=== PATIENT | female | born 1980 | race Caucasian/White ===

== ENCOUNTER → 2016-12-19 | Outpatient (CLI) | payer OTHER ==
--- NOTE | 2016-12-19 08:18 | US ---
EXAMINATION TYPE: US venous doppler duplex LE LT DATE OF EXAM: 12/19/2016 7:29 AM COMPARISON: NONE CLINICAL HISTORY: M79.662 Pain left leg, R22.42 Swelling left leg. SIDE PERFORMED: Left TECHNIQUE: The lower extremity deep venous system is examined utilizing real time linear array sonog mariangel with graded compression, doppler sonography and color-flow sonography. VESSELS IMAGED: External Iliac Vein (EIV) Common Femoral Vein Deep Femoral Vein Greater Saphenous Vein * Femoral Vein Popliteal Vein Small Saphenous Vein * Proximal Calf Veins (* superficial vessels) Left Leg: Negative for DVT IMPRESSION: Left lower extremity negative for deep venous thrombosis.
[2016-12-19 08:26] LABS: CH 31.1; CHCM 33.4; HCT 44.4 % (34.0-46.0); HDW 2.24; HGB 14.3 gm/dL (11.4-16.0); MCH 30.2 pg (25.0-35.0); MCHC 32.3 g/dL (31.0-37.0); MCV 93.7 fL (80.0-100.0); Mean Platelet Volume 8.1; RBC 4.74 m/uL (3.80-5.40); RDW 13.3 % (11.5-15.5); WBC 11.4 k/uL (3.8-10.6)
[2016-12-19 08:31] LABS: Appearance,Urine Cloudy (Clear); Bacteria,Urine Few /hpf; Bilirubin,Urine Negative (Negative); Glucose,Urine (UA) Negative (Negative); Ketones,Urine Negative (Negative); Leukocyte Esterase,Urine Small (Negative); Mucus,Urine Rare /hpf; Nitrite,Urine Positive (Negative); PH, Urine 5.5 (5.0-8.0); Particle Count 47999; Protein,Urine Negative (Negative); Specific Gravity,Urine 1.013 (1.001-1.035); Squamous Epithelial Cell,Urine 22 /hpf (0-4); UA Billing (MACRO vs. MICRO) MICRO; Urobilinogen,Urine <2.0 mg/dL (<2.0); WBC,Urine 5 /hpf (0-5)
--- NOTE | 2016-12-19 10:16 | XR ---
EXAMINATION TYPE: XR chest 2V DATE OF EXAM: 12/19/2016 COMPARISON: NONE TECHNIQUE: PA and lateral views submitted. HISTORY: Routine checkup FINDINGS: The lungs are clear and there is no pneumothorax, pleural effusion, or focal pneumonia. Hypertrophi c change of the spine noted. Hyperinflation suggests COPD. Surgical clips in the upper abdomen noted. IMPRESSION: 1. No acute process. Correlate for COPD.
[2016-12-19 13:02] LABS: ALT 32 U/L (9-52); AST 14 U/L (14-36); Alkaline Phosphatase 52 U/L (38-126); Anion Gap 11 mmol/L; Blood Urea Nitrogen 8 mg/dL (7-17); Calcium 9.5 mg/dL (8.4-10.2); Carbon Dioxide 24 mmol/L (22-30); Chloride 108 mmol/L (98-107); Cholesterol 161 mg/dL (<200); Glucose 98 mg/dL (74-99); HDL Cholesterol 59 mg/dL (40-60); Non-African American GFR(MDRD) >60 (>60 ml/min/1.73 sqM); Potassium 4.2 mmol/L (3.5-5.1); Sodium 143 mmol/L (137-145); Total Bilirubin 0.5 mg/dL (0.2-1.3); Total Protein 7.1 g/dL (6.3-8.2)
[2016-12-19 17:35] LABS: Rheumatoid Factor, Qnt <9 IU/mL (<12)
== END | disposition home or self-care (01) ==
LOC: RADUSWWP 06:51
PROVIDERS: ATTEND Internal Medicine
DX: R22.42 Localized swelling, mass and lump, left lower limb (principal); M79.662 Pain in left lower leg; R35.0 Frequency of micturition; M19.90 Unspecified osteoarthritis, unspecified site; F17.200 Nicotine dependence, unspecified, uncomplicated; Z00.00 Encounter for general adult medical examination without abnormal findings
CPT/HCPCS: 71020; 80053; 80061; 81001; 84439; 84443; 85027; 86431

== ENCOUNTER → 2017-02-09 | Outpatient (CLI) | payer OTHER ==
--- NOTE | 2017-02-09 10:24 | XR ---
EXAMINATION TYPE: XR cervical spine comp DATE OF EXAM: 02/09/2017 COMPARISON: NONE HISTORY: Pain TECHNIQUE: Four views are submitted. FINDINGS: The odontoid is intact. There are no compression deformities. The prevertebral soft tissue structur es are within normal limits. Hypertrophic changes are seen at levels C4-T1. Facet arthropathy noted. IMPRESSION: 1. Multilevel mild hypertrophic changes. Symptoms persist consider MRI.
--- NOTE | 2017-02-09 10:29 | XR ---
EXAMINATION TYPE: XR shoulder complete LT DATE OF EXAM: 02/09/2017 COMPARISON: NONE HISTORY: Pain TECHNIQUE: Three views are submitted. FINDINGS: The osseous structures are intact. There is no acute fracture or dislocation. The AC joint is maint ained. IMPRESSION: 1. No acute process.
== END | disposition home or self-care (01) ==
LOC: RADXRMAIN 09:38
PROVIDERS: ATTEND Internal Medicine
DX: M53.82 Other specified dorsopathies, cervical region (principal); M19.90 Unspecified osteoarthritis, unspecified site
CPT/HCPCS: 72050

== ENCOUNTER → 2017-05-13 | Outpatient (CLI) | payer BC, OTHER ==
--- NOTE | 2017-05-13 14:50 | XR ---
Right elbow HISTORY: Pain for 3 months 3 views of the right elbow No comparisons Bone mineralization, joint spaces and alignment are maintained. No fracture or dislocation. No eviden t joint effusion. IMPRESSION: No acute abnormality. Elbow MRI may be of benefit.
== END | disposition home or self-care (01) ==
LOC: RADXRMAIN 10:04
PROVIDERS: ATTEND Internal Medicine
DX: M25.521 Pain in right elbow (principal)

== ENCOUNTER 2017-09-15 18:25 | Observation (INO) | payer BC, OTHER ==
[2017-09-15] MEDS ORDERED: NITROGLYCERIN OINT 1 INCH/GM PACKET TOPICAL STA (18:56)
[2017-09-15] MEDS ORDERED: MORPHINE SULFATE 2 MG/ML SYRINGE IV STA (18:56)
[2017-09-15] MEDS ORDERED: SODIUM CHLORIDE 0.9% 1,000 ML IV STA (18:56)
[2017-09-15] MEDS ORDERED: ONDANSETRON 4 MG/2 ML VIAL IVP STA (18:56)
[2017-09-15 19:22] LABS: Basophils # (A) 0.1 k/uL (0-0.2); Basophils % (A) 1 %; Eosinophils # (A) 0.2 k/uL (0-0.7); Eosinophils % (A) 2 %; HCT 42.3 % (34.0-46.0); HGB 14.2 gm/dL (11.4-16.0); Lymphocytes # (A) 2.6 k/uL (1.0-4.8); Lymphocytes % (A) 19 %; MCH 30.5 pg (25.0-35.0); MCHC 33.5 g/dL (31.0-37.0); MCV 90.8 fL (80.0-100.0); Mean Platelet Volume 7.4; Monocytes # (A) 0.9 k/uL (0-1.0); Monocytes % (A) 7 %; Neutrophils # (A) 9.8 k/uL (1.3-7.7); Neutrophils % (A) 71 %; Platelet Count 302 k/uL (150-450); RBC 4.66 m/uL (3.80-5.40); WBC 13.8 k/uL (3.8-10.6)
[2017-09-15 19:31] LABS: ALT 31 U/L (9-52); AST 21 U/L (14-36); Albumin 4.3 g/dL (3.5-5.0); Alkaline Phosphatase 61 U/L (38-126); Anion Gap 10 mmol/L; Blood Urea Nitrogen 9 mg/dL (7-17); Calcium 9.5 mg/dL (8.4-10.2); Carbon Dioxide 25 mmol/L (22-30); Chloride 104 mmol/L (98-107); Glucose 96 mg/dL (74-99); Potassium 4.4 mmol/L (3.5-5.1); Sodium 139 mmol/L (137-145); Total Bilirubin 0.6 mg/dL (0.2-1.3); Total Protein 7.2 g/dL (6.3-8.2)
[2017-09-15 19:33] LABS: D-Dimer 0.27 mg/L FEU (<0.60); INR 0.9 (<1.2); Partial Thromboplastin Time 23.4 sec (22.0-30.0); Prothrombin Time 9.4 sec (9.0-12.0)
--- NOTE | 2017-09-15 19:37 | XR ---
EXAMINATION TYPE: XR chest 2V DATE OF EXAM: 09/15/2017 COMPARISON: 12/19/2016 HISTORY: Chest pain TECHNIQUE: Frontal and lateral views of the chest are obtained. FINDINGS: Heart and mediastinum are normal. Lungs are clear. Diaphragm is normal. Bony thorax appear s normal. IMPRESSION: Normal chest. No change.
[2017-09-15 19:40] LABS: Creatine Kinase 57 U/L (30-135)
[2017-09-15 19:51] LABS: Creatine Kinase MB 0.7 ng/mL (0.0-2.4); Troponin I <0.012 ng/mL (0.000-0.034)
[2017-09-15 21:32] VITALS: TEMP 97.8
--- NOTE | 2017-09-15 23:15 | ED ---
Chest Pain HPI - General Chief Complaint: Chest Pain Stated Complaint: chest pain Time Seen by Provider: 09/15/17 18:48 Source: patient Mode of arrival: wheelchair Limitations: no limitations - History of Present Illness Initial Comments: 36 years O female tenderness chest pain started 4:30 this morning chest pain is ongoing for about 18 hours she also has some pleuritic chest pain, she has a history of tobacco use she has been smoking regularly for 23 years denies any fever no chills she does have a smoker's cough does bring up some phlegm she also had cold sweats when she had chest pain chest pain or off all day past medical history is unremarkable past surgical history significant for gallbladder disease the procedure and uterine ablation - Related Data Home Medications Medication Instructions Recorded Confirmed ALPRAZolam [Xanax] 0.25 mg PO BID PRN 09/15/17 09/15/17 Aspirin EC [Ecotrin Low Dose] 162 mg PO DAILY PRN 09/15/17 09/15/17 traMADol HCL [Ultram] 50 mg PO TID PRN 09/15/17 09/15/17 Allergies Allergy/AdvReac Type Severity Reaction Status Date / Time No Known Allergies Allergy Verified 09/15/17 19:04 Review of Systems ROS Statement: Those systems with pertinent positive or pertinent negative responses have been documented in the HPI. ROS Other: All systems not noted in ROS Statement are negative. EKG Findings - EKG Comments: EKG Findings:: KG is normal sinus ventricular rate is 87 MA interval is 140 QRS duration is 84 QT is/QTc is 374/450. This EKG does not reveal any ST elevation or ST depression Past Medical History Past Medical History: No Reported History History of Any Multi-Drug Resistant Organisms: None Reported Past Surgical History: Cholecystectomy Past Psychological History: Anxiety Smoking Status: Current every day smoker Past Alcohol Use History: None Reported Past Drug Use History: None Reported General Exam - General Exam Comments Initial Comments: General: The patient is awake and alert, in no distress, and does not appear acutely ill. Skin: Skin is warm and dry and no rashes or lesions are noted. Eye: Pupils are equal, round and reactive to light, extra-ocular movements are intact; there is normal conjunctiva bilaterally. Ears, nose, mouth and throat: There are moist mucous membranes and no oral lesions. Neck: The neck is supple, there is no tenderness or JVD. Cardiovascular: There is a regular rate and rhythm. No murmur, rub or gallop is appreciated. Respiratory: To auscultation bilateral, no wheezing no rhonchi no distress respiratory holliday noticed Gastrointestinal: Soft, non-distended, non-tender abdomen without masses or organomegaly noted. There is no rebound or guarding present. Bowel sounds are unremarkable. Back: There is no tenderness to palpation in the midline. There is no obvious deformity. Musculoskeletal: Normal ROM, no tenderness, There is no pedal edema. There is no calf tenderness or swelling. No cords were appreciated. Neurological: CN II-XII intact, Cranial nerves III through XII are intact. There are no obvious motor or sensory deficits. Coordination appears grossly intact. Speech is normal. Psychiatric: Cooperative, appropriate mood & affect, normal judgment. Limitations: no limitations Course Vital Signs 09/15/17 09/15/17 09/15/17 18:27 19:24 20:54 Temperature 98.3 F Pulse Rate 89 83 80 Respiratory 18 19 19 Rate Blood Pressure 129/84 125/80 115/80 O2 Sat by Pulse 100 95 96 Oximetry 09/15/17 09/15/17 21:30 22:40 Temperature 97.8 F Pulse Rate 76 68 Respiratory 16 18 Rate Blood Pressure 114/75 113/70 O2 Sat by Pulse 96 95 Oximetry Noticed the white count is 13.8 d-dimer is normal troponin is unremarkable compress metabolic panel EKG and chest x-ray are within normal range considering patient's risk factors she be observed for 24 hours with the cardiology consult , Patient agreed with Disposition Clinical Impression: Chest pain Disposition: ADMITTED IP TO THIS HOSP Condition: Good Referrals: Mick Coffman MD [Primary Care Provider] - 1-2 days
[2017-09-15] MEDS ORDERED: MORPHINE SULFATE 2 MG/ML SYRINGE IV PRN (23:19)
[2017-09-15] MEDS ORDERED: MORPHINE SULFATE 2 MG/ML SYRINGE IVP STA (23:21)
[2017-09-15] MEDS ORDERED: traMADol 50 MG TAB PO PRN (23:26)
[2017-09-15] MEDS ORDERED: ALPRAZolam 0.25 MG TAB PO PRN (23:26)
[2017-09-16] MEDS ORDERED: NITROGLYCERIN OINT 1 INCH/GM PACKET TOPICAL SCH
[2017-09-16 00:13] VITALS: BP 106/69; PULSE 76; RESP 16
[2017-09-16] MEDS ORDERED: ASPIRIN 325 MG TAB PO SCH (09:00)
== END 2017-09-16 00:08 | disposition left against medical advice (07) ==
LOC: EC 18:25 → 3OBS 23:19
PROVIDERS: ADMIT Internal Medicine; ATTEND Internal Medicine
DX: R07.81 Pleurodynia (principal); R61 Generalized hyperhidrosis; J41.0 Simple chronic bronchitis; F41.9 Anxiety disorder, unspecified; F17.200 Nicotine dependence, unspecified, uncomplicated; Z53.21 Procedure and treatment not carried out due to patient leaving prior to being seen by health care provider; Z90.49 Acquired absence of other specified parts of digestive tract
CPT/HCPCS: 99285; 96374 ×2; 96375 ×2; 36415; 93005; 85379; 80053; 82550; 82553; 83735; 84484; 85025; 85610; 85730; 71046; G0378; J2405; J2270

== ENCOUNTER 2018-06-14 10:48 | Emergency (ER) | payer BC, OTHER ==
[2018-06-14 10:53] VITALS: BP 117/72; PULSE 109; RESP 18; TEMP 98.2
[2018-06-14] MEDS ORDERED: methylPREDNISolone SOD SUCCI 125 MG/2 ML VIAL IM ONE (11:49)
[2018-06-14] MEDS ORDERED: CYCLOBENZAPRINE 10MG STARTER 3 TAB BTL PO STA (11:49)
[2018-06-14] MEDS ORDERED: KETOROLAC 60 MG/2 ML VIAL IM STA (11:49)
[2018-06-14] MEDS ORDERED: MORPHINE SULFATE 4 MG/ML SYRINGE IM STA (11:50)
--- NOTE | 2018-06-14 12:01 | ED ---
Back Pain HPI - General Chief Complaint: Back Pain/Injury Stated Complaint: back pain Time Seen by Provider: 06/14/18 11:22 Source: patient, RN notes reviewed, old records reviewed - History of Present Illness Initial Comments: Yasmin is a 37-year-old [employer] sensors or stiff lower back pain radiates down the right leg. Patient reports her symptoms started this morning for area. She denies any recent falls or trauma. She denies any fevers or chills urinary incontinence or bowel condoms. Patient states that she has no abdominal pain. Patient states she's had history of degenerative disc disease. Patient reports that she has had her daily tramadol. - Related Data Home Medications Medication Instructions Recorded Confirmed ALPRAZolam [Xanax] 0.25 mg PO BID PRN 09/15/17 06/14/18 traMADol HCL [Ultram] 50 mg PO TID PRN 09/15/17 06/14/18 Meloxicam [Mobic] 15 mg PO DAILY 06/14/18 06/14/18 Omeprazole [PriLOSEC] 20 mg PO BID 06/14/18 06/14/18 Previous Rx's Medication Instructions Recorded Cyclobenzaprine [Flexeril] 10 mg PO TID #20 tab 06/14/18 Dexamethasone 0.75 mg PO DAILY #12 tab 06/14/18 Ketorolac [Toradol] 10 mg PO Q6HR #15 tab 06/14/18 Allergies Allergy/AdvReac Type Severity Reaction Status Date / Time No Known Allergies Allergy Verified 06/14/18 11:27 Review of Systems ROS Statement: Those systems with pertinent positive or pertinent negative responses have been documented in the HPI. ROS Other: All systems not noted in ROS Statement are negative. Past Medical History Past Medical History: No Reported History History of Any Multi-Drug Resistant Organisms: None Reported Past Surgical History: Cholecystectomy Past Psychological History: Anxiety Smoking Status: Current every day smoker Past Alcohol Use History: None Reported Past Drug Use History: None Reported General Exam General appearance: alert, in no apparent distress Head exam: Present: atraumatic, normocephalic, normal inspection Eye exam: Present: normal appearance, PERRL, EOMI. Absent: scleral icterus, conjunctival injection, periorbital swelling ENT exam: Present: normal exam, mucous membranes moist Neck exam: Present: normal inspection. Absent: tenderness, meningismus, lymphadenopathy Respiratory exam: Present: normal lung sounds bilaterally. Absent: respiratory distress, wheezes, rales, rhonchi, stridor Cardiovascular Exam: Present: regular rate, normal rhythm, normal heart sounds. Absent: systolic murmur, diastolic murmur, rubs, gallop, clicks GI/Abdominal exam: Present: soft, normal bowel sounds. Absent: distended, tenderness, guarding, rebound, rigid Extremities exam: Present: normal inspection, full ROM, normal capillary refill. Absent: tenderness, pedal edema, joint swelling, calf tenderness Back exam: Present: normal inspection, tenderness (Denies right-sided sciatic notch tenderness. Right-sided paraspinal lumbar spine tenderness.) Neurological exam: Present: alert, oriented X3, CN II-XII intact Psychiatric exam: Present: normal affect, normal mood Skin exam: Present: warm Course Vital Signs 06/14/18 10:50 Temperature 98.2 F Pulse Rate 109 H Respiratory 18 Rate Blood Pressure 117/72 O2 Sat by Pulse 96 Oximetry Medical Decision Making - Medical Decision Making This is a 37-year-old female with acute flareup for sciatic nerve. She has a dentist does not disease history. Patient has no falls or trauma. She denies any red flag symptoms. Patient was given IM medication including Solu-Medrol Toradol Flexeril by mouth. Patient feels much better this time feels stable for discharge home. We'll discharge the Patient with a short course muscle relaxers and temperature medication. All questions were answered and return parameters were discussed. Disposition Clinical Impression: Right sided sciatica Disposition: HOME SELF-CARE Condition: Good Instructions (If sedation given, give patient instructions): Acute Low Back Pain (ED), Sciatica (ED) Additional Instructions: Patient has a close follow-up with primary care physician. Patient should return to emergency department if any alarming signs or symptoms occur. Following up with a back specialist. Apply warm compresses over the back help loosen up the muscles and tension. Prescriptions: Dexamethasone 0.75 mg PO DAILY #12 tab Cyclobenzaprine [Flexeril] 10 mg PO TID #20 tab Ketorolac [Toradol] 10 mg PO Q6HR #15 tab Is patient prescribed a controlled substance at d/c from ED?: No Referrals: Mick Coffman MD [Primary Care Provider] - 1-2 days Time of Disposition: 11:58
== END 2018-06-14 12:14 | disposition home or self-care (01) ==
LOC: EC 10:48
DX: M54.41 Lumbago with sciatica, right side (principal); F17.200 Nicotine dependence, unspecified, uncomplicated; Z79.1 Long term (current) use of non-steroidal anti-inflammatories (NSAID); Z79.899 Other long term (current) drug therapy
CPT/HCPCS: 99284; 96372 ×3; J2270; J2930; J1885

== ENCOUNTER 2019-02-03 20:23 | Emergency (ER) | payer OTHER ==
[2019-02-03 20:30] VITALS: BP 139/86; PULSE 81; RESP 18; TEMP 97.7
--- NOTE | 2019-02-03 21:00 | ED ---
Eye Problem HPI - General Chief complaint: Eye Problems Stated complaint: [place] eye Time Seen by Provider: 02/03/19 20:32 Source: patient Mode of arrival: ambulatory Limitations: no limitations - History of Present Illness Initial comments: Patient is a 38-year-old female presenting to emergency Department with complaints of right eye irritation and drainage that started this morning. Patient states she noticed her right eye feeling irritated and red throughout today. Patient has now been having yellow discharge for the last few hours. Patient states everyone in the household has had colds. Patient denies blurry vision, severe eye pain. Patient denies wearing contacts. Patient has no other complaints at this time. Upon arrival to the ER, vital signs are stable. - Related Data Home Medications Medication Instructions Recorded Confirmed ALPRAZolam [Xanax] 0.25 mg PO BID PRN 09/15/17 06/14/18 traMADol HCL [Ultram] 50 mg PO TID PRN 09/15/17 06/14/18 Meloxicam [Mobic] 15 mg PO DAILY 06/14/18 06/14/18 Omeprazole [PriLOSEC] 20 mg PO BID 06/14/18 06/14/18 Previous Rx's Medication Instructions Recorded Cyclobenzaprine [Flexeril] 10 mg PO TID #20 tab 06/14/18 Dexamethasone 0.75 mg PO DAILY #12 tab 06/14/18 Ketorolac [Toradol] 10 mg PO Q6HR #15 tab 06/14/18 Polymyxin B-Trimeth Sulf Ophth 1 drops RIGHT EYE Q4H 5 Days #1 02/03/19 [Polytrim Opthalmic] bottle Allergies Allergy/AdvReac Type Severity Reaction Status Date / Time No Known Allergies Allergy Verified 06/14/18 11:27 Review of Systems ROS Statement: Those systems with pertinent positive or pertinent negative responses have been documented in the HPI. ROS Other: All systems not noted in ROS Statement are negative. Past Medical History Past Medical History: No Reported History History of Any Multi-Drug Resistant Organisms: None Reported Past Surgical History: Cholecystectomy Past Psychological History: Anxiety Smoking Status: Current every day smoker Past Alcohol Use History: None Reported Past Drug Use History: None Reported General Exam - General Exam Comments Initial Comments: GENERAL: Well-appearing, well-nourished and in no acute distress. HEAD: Atraumatic, normocephalic. EYES: Pupils equal round and reactive to light, extraocular movements intact, sclera anicteric, right conjunctiva is injected. There is a yellow discharge in the corner the eye. ENT: Nares patent, oropharynx clear without exudates. Moist mucous membranes. NECK: Normal range of motion, supple without lymphadenopathy or JVD. LUNGS: Breath sounds clear to auscultation bilaterally and equal. No wheezes rales or rhonchi. HEART: Regular rate and rhythm without murmurs, rubs or gallops. EXTREMITIES: Normal range of motion, no pitting or edema. No clubbing or cyanosis. PSYCH: Normal mood, normal affect. SKIN: Warm, Dry, normal turgor, no rashes or lesions noted. Limitations: no limitations Course Vital Signs 02/03/19 20:26 Temperature 97.7 F Pulse Rate 81 Respiratory 18 Rate Blood Pressure 139/86 O2 Sat by Pulse 100 Oximetry Medical Decision Making - Medical Decision Making Patient is a 38-year-old female presenting with bacterial conjunctivitis of the right eye. Patient denies severe right eye pain, blurry vision. Vital signs are stable. Patient will be started on antibiotic eyedrops. Patient is stable for discharge at this time. Patient will follow up with ophthalmology if symptoms persist after 1 week. Patient is in agreement with this plan of care. Return parameters were discussed the patient she verbalized understanding. Case discussed with Dr. Medeiros. Disposition Clinical Impression: Bacterial conjunctivitis of right eye Disposition: HOME SELF-CARE Condition: Stable Instructions (If sedation given, give patient instructions): Conjunctivitis (ED) Additional Instructions: Please return to the Emergency Department if symptoms worsen or any other concerns. Use antibiotics drops as discussed. With ophthalmology if symptoms persist after one week. May also use cool compresses on the eye for relief. Prescriptions: Polymyxin B-Trimeth Sulf Ophth [Polytrim Opthalmic] 1 drops RIGHT EYE Q4H 5 Days #1 bottle Is patient prescribed a controlled substance at d/c from ED?: No Referrals: None,Stated [Primary Care Provider] - 1-2 days
== END 2019-02-03 21:17 | disposition home or self-care (01) ==
LOC: EC 20:23
DX: H10.89 Other conjunctivitis (principal); F41.9 Anxiety disorder, unspecified; F17.200 Nicotine dependence, unspecified, uncomplicated; Z79.1 Long term (current) use of non-steroidal anti-inflammatories (NSAID); Z79.899 Other long term (current) drug therapy
CPT/HCPCS: 99282

== ENCOUNTER 2019-02-07 20:56 | Emergency (ER) | payer OTHER ==
[2019-02-07] MEDS ORDERED: ALBUTEROL NEBULIZED 2.5 MG/3 ML INHALATION STA (21:23)
--- NOTE | 2019-02-07 21:25 | ED ---
URI HPI - General Chief Complaint: Upper Respiratory Infection Stated Complaint: Cough, Fever Time Seen by Provider: 02/07/19 21:11 Source: patient Mode of arrival: ambulatory Limitations: no limitations - History of Present Illness Initial Comments: This patient is a 38-year-old woman who presents to be evaluated for upper respiratory symptoms, including a cough, low-grade fevers, some sinus congestion, and mild dyspnea. Patient's son having similar symptoms for nearly the same amount of time. She has tried some [id number] remedies without much relief. MD Complaint: cough Onset/Timin -: days(s) Severity: moderate Consistency: constant Improves With: nothing Worsens With: nothing Context: sick contacts Associated Symptoms: cough, chest pain Treatments Prior to Arrival: "cold medicine" - Related Data Home Medications Medication Instructions Recorded Confirmed ALPRAZolam [Xanax] 0.25 mg PO BID PRN 09/15/17 06/14/18 traMADol HCL [Ultram] 50 mg PO TID PRN 09/15/17 06/14/18 Meloxicam [Mobic] 15 mg PO DAILY 06/14/18 06/14/18 Omeprazole [PriLOSEC] 20 mg PO BID 06/14/18 06/14/18 Previous Rx's Medication Instructions Recorded Cyclobenzaprine [Flexeril] 10 mg PO TID #20 tab 06/14/18 Dexamethasone 0.75 mg PO DAILY #12 tab 06/14/18 Ketorolac [Toradol] 10 mg PO Q6HR #15 tab 06/14/18 Polymyxin B-Trimeth Sulf Ophth 1 drops RIGHT EYE Q4H 5 Days #1 02/03/19 [Polytrim Opthalmic] bottle Albuterol Inhaler [Ventolin Hfa 1 - 2 puff INHALATION Q6HR PRN #1 02/07/19 Inhaler] inhaler predniSONE 60 mg PO DAILY #30 tab 02/07/19 Allergies Allergy/AdvReac Type Severity Reaction Status Date / Time No Known Allergies Allergy Verified 02/07/19 21:02 Review of Systems ROS Statement: Those systems with pertinent positive or pertinent negative responses have been documented in the HPI. ROS Other: All systems not noted in ROS Statement are negative. Constitutional: Reports: fever. Denies: chills, weakness ENT: Reports: congestion. Denies: throat pain Respiratory: Reports: as per HPI, cough, dyspnea. Denies: wheezes, hemoptysis Cardiovascular: Reports: as per HPI, chest pain. Denies: palpitations, edema Gastrointestinal: Denies: abdominal pain, vomiting, diarrhea Genitourinary: Denies: dysuria Musculoskeletal: Denies: back pain Skin: Denies: rash Neurological: Denies: headache Past Medical History Past Medical History: No Reported History History of Any Multi-Drug Resistant Organisms: None Reported Past Surgical History: Cholecystectomy Past Psychological History: Anxiety Smoking Status: Current every day smoker Past Alcohol Use History: None Reported Past Drug Use History: None Reported General Exam Limitations: no limitations General appearance: alert, in no apparent distress Head exam: Present: atraumatic, normocephalic Eye exam: Present: normal appearance. Absent: scleral icterus, conjunctival injection ENT exam: Present: normal oropharynx Neck exam: Present: normal inspection, full ROM. Absent: lymphadenopathy Respiratory exam: Present: wheezes. Absent: respiratory distress, rales, rhonchi, stridor Cardiovascular Exam: Present: regular rate, normal rhythm, normal heart sounds. Absent: systolic murmur, diastolic murmur, rubs, gallop GI/Abdominal exam: Present: soft. Absent: distended, tenderness, guarding, rebound, rigid, mass Neurological exam: Present: alert Skin exam: Present: warm, dry, intact, normal color. Absent: rash Course Vital Signs 02/07/19 02/07/19 02/07/19 21:01 21:12 21:44 Temperature 98.1 F Pulse Rate 88 86 Respiratory 20 18 20 Rate Blood Pressure 111/77 O2 Sat by Pulse 97 Oximetry 02/07/19 02/07/19 21:50 22:19 Temperature 97.7 F Pulse Rate 84 77 Respiratory 18 Rate Blood Pressure 123/99 O2 Sat by Pulse 99 Oximetry Disposition Clinical Impression: Acute bronchitis Disposition: HOME SELF-CARE Condition: Good Instructions (If sedation given, give patient instructions): Acute Bronchitis (ED) Prescriptions: predniSONE 60 mg PO DAILY #30 tab Albuterol Inhaler [Ventolin Hfa Inhaler] 1 - 2 puff INHALATION Q6HR PRN #1 inhaler PRN Reason: Wheezing Is patient prescribed a controlled substance at d/c from ED?: No Referrals: None,Stated [Primary Care Provider] - 1-2 days
--- NOTE | 2019-02-07 21:36 | XR ---
EXAMINATION TYPE: XR chest 2V DATE OF EXAM: 02/07/2019 COMPARISON: 09/15/2017 HISTORY: Cough and fever TECHNIQUE: Frontal and lateral views of the chest are obtained. FINDINGS: Heart and mediastinum are normal. Lungs are clear. Diaphragm is normal. Bony thorax appear s normal. IMPRESSION: Normal chest. No change.
[2019-02-07 22:20] VITALS: BP 123/99; PULSE 77; RESP 18; TEMP 97.7
== END 2019-02-07 22:19 | disposition home or self-care (01) ==
LOC: EC 20:56
DX: J20.9 Acute bronchitis, unspecified (principal); F41.9 Anxiety disorder, unspecified; F17.200 Nicotine dependence, unspecified, uncomplicated; Z79.1 Long term (current) use of non-steroidal anti-inflammatories (NSAID); Z79.899 Other long term (current) drug therapy
CPT/HCPCS: 71046; 94640; 99283

== ENCOUNTER 2019-11-18 00:35 | Emergency (ER) | payer OTHER ==
[2019-11-18] MEDS ORDERED: KETOROLAC 15 MG/ML 1 ML VIAL IM STA (01:20)
--- NOTE | 2019-11-18 01:24 | ED ---
Upper Extremity HPI - General Chief Complaint: Extremity Injury, Upper Stated Complaint: Pain In L Shoulder Time Seen by Provider: 11/18/19 01:04 Source: patient Mode of arrival: ambulatory - History of Present Illness Initial Comments: Patient is a 39-year-old female presenting to the emergency department with a chief complaint of left shoulder pain. States the symptoms began yesterday morning when it woke her up out of her sleep. Patient reports the pain is located in the left shoulder and the left, superior scapular region. Patient denies previous injuries or any current injuries to the region. Patient denies any numbness or tingling. States the pain is radiating to her left shoulder and it is exacerbated especially with abduction above 90. He denies taking any medication to alleviate the symptoms. Denies any chest pain or shortness of breath. - Related Data Home Medications Medication Instructions Recorded Confirmed ALPRAZolam [Xanax] 0.25 mg PO BID PRN 09/15/17 06/14/18 traMADol HCL [Ultram] 50 mg PO TID PRN 09/15/17 06/14/18 Meloxicam [Mobic] 15 mg PO DAILY 06/14/18 06/14/18 Omeprazole [PriLOSEC] 20 mg PO BID 06/14/18 06/14/18 Previous Rx's Medication Instructions Recorded Cyclobenzaprine [Flexeril] 10 mg PO TID #20 tab 06/14/18 Ketorolac [Toradol] 10 mg PO Q6HR #15 tab 06/14/18 dexAMETHasone [Dexamethasone] 0.75 mg PO DAILY #12 tab 06/14/18 Polymyxin B-Trimeth Sulf Ophth 1 drops RIGHT EYE Q4H 5 Days #1 02/03/19 [Polytrim Opthalmic] bottle Albuterol Inhaler (Mhu) [Ventolin 1 - 2 puff INHALATION Q6HR PRN #1 02/07/19 Hfa Inhaler (Mhu)] inhaler predniSONE 60 mg PO DAILY #30 tab 02/07/19 Allergies Allergy/AdvReac Type Severity Reaction Status Date / Time No Known Allergies Allergy Verified 11/18/19 01:02 Review of Systems ROS Statement: Those systems with pertinent positive or pertinent negative responses have been documented in the HPI. ROS Other: All systems not noted in ROS Statement are negative. Past Medical History Past Medical History: No Reported History History of Any Multi-Drug Resistant Organisms: None Reported Past Surgical History: Cholecystectomy Past Psychological History: Anxiety Smoking Status: Current every day smoker Past Alcohol Use History: None Reported Past Drug Use History: None Reported General Exam Limitations: no limitations General appearance: alert, in no apparent distress Head exam: Present: atraumatic, normocephalic, normal inspection Eye exam: Present: normal appearance, PERRL, EOMI Pupils: Present: normal accommodation ENT exam: Present: normal exam, normal oropharynx, mucous membranes moist Neck exam: Present: normal inspection, full ROM. Absent: tenderness (No cervical tenderness) Respiratory exam: Present: normal lung sounds bilaterally. Absent: respiratory distress, wheezes, rales Cardiovascular Exam: Present: regular rate, normal rhythm, normal heart sounds Extremities exam: Present: normal inspection, full ROM, tenderness (Left trapezius and anterior deltoid tenderness. Tenderness in the left superior scapular region.), normal capillary refill, other (+2 ulnar radial pulses bilaterally.) Back exam: Present: normal inspection, full ROM. Absent: tenderness, CVA tenderness (R), CVA tenderness (L), muscle spasm, paraspinal tenderness, vertebral tenderness Neurological exam: Present: alert, oriented X3 Psychiatric exam: Present: normal affect, normal mood Skin exam: Present: warm, dry, intact, normal color Course Vital Signs 11/18/19 11/18/19 01:00 02:37 Temperature 98.3 F 98.0 F Pulse Rate 94 73 Respiratory 16 18 Rate Blood Pressure 169/79 137/85 O2 Sat by Pulse 98 97 Oximetry Medical Decision Making - Medical Decision Making Patient is a 39-year-old female presenting to emergency prompt chief complaint left shoulder pain that started in the morning yesterday. There was no trauma. She woke up with the pain. On exam there is some anterior deltoid tenderness but most of it is located in the superior region of the scapula. She does have limited range of motion especially with abduction above 90. X-ray of the left shoulder reveals no acute pathologies. No direct trauma. EKG obtained shows sinus rhythm. She denies any chest pain or shortness of breath. I do suspect a possible rotator cuff injury. Ice was applied she was given Toradol and Tylenol 3 starter pack. On reevaluation patient reports her pain is improved especially from the ice compress. She was advised to follow-up with card services specialist. Strict return parameters were thoroughly discussed the patient was understanding and agreeable. Case discussed with physician. - EKG Data EKG Comments: Sinus rhythm with no ST or T-wave changes. Ventricular rate 74, NM 130, QRS 70, QTc 440. Disposition Clinical Impression: Rotator cuff injury, Left shoulder pain Disposition: HOME SELF-CARE Condition: Stable Instructions (If sedation given, give patient instructions): Rotator Cuff Injury (ED) Additional Instructions: Alternate between Tylenol and Motrin for pain control. Take prescribed medication as directed. Return to emergency department if symptoms worsen. Follow with card services specialist. Is patient prescribed a controlled substance at d/c from ED?: No Referrals: None,Stated [Primary Care Provider] - 1-2 days Time of Disposition: 02:20
--- NOTE | 2019-11-18 01:41 | XR ---
EXAMINATION TYPE: XR shoulder complete LT DATE OF EXAM: 11/18/2019 COMPARISON: 02/09/2017 HISTORY: Shoulder pain TECHNIQUE: 3 views FINDINGS: I see no fracture nor dislocation. Joint spaces are normal. There are no pathologic calcifi cations. IMPRESSION: Negative left shoulder exam. No change.
[2019-11-18] MEDS ORDERED: ACET/COD 300 MG/30 MG STARTER PACK 6 TAB BTL PO STA (01:59)
[2019-11-18 02:41] VITALS: BP 137/85; PULSE 73; RESP 18; TEMP 98
== END 2019-11-18 02:41 | disposition home or self-care (01) ==
LOC: EC 00:35
DX: M25.512 Pain in left shoulder (principal); S46.009A Unspecified injury of muscle(s) and tendon(s) of the rotator cuff of unspecified shoulder, initial encounter; F41.9 Anxiety disorder, unspecified; F17.200 Nicotine dependence, unspecified, uncomplicated; Z79.1 Long term (current) use of non-steroidal anti-inflammatories (NSAID); Z79.899 Other long term (current) drug therapy; X58.XXXA Exposure to other specified factors, initial encounter
CPT/HCPCS: 93005; 73030; 99283; 96372; J1885

== ENCOUNTER 2019-11-23 04:27 | Emergency (ER) | payer OTHER ==
[2019-11-23 04:34] VITALS: BP 145/93; PULSE 108; RESP 18; TEMP 97.8
[2019-11-23] MEDS ORDERED: MORPHINE SULFATE 4 MG/ML SYRINGE IM STA (04:45)
[2019-11-23] MEDS ORDERED: ACET/COD 300 MG/30 MG STARTER PACK 6 TAB BTL PO STA (04:45)
--- NOTE | 2019-11-23 04:49 | ED ---
Upper Extremity HPI - General Chief Complaint: Extremity Injury, Upper Stated Complaint: L shoulder pain Time Seen by Provider: 11/23/19 04:35 Source: patient Mode of arrival: ambulatory Limitations: physical limitation - History of Present Illness Initial Comments: Kristen 39-year-old female who was seen earlier in the week for a left shoulder injury. She was walking her dog on a leash and pulled her very hard. Pain progressively worsened throughout the day while she was washing reina and doing repetitive motions. Her previous workup in the ER revealed a normal x-ray she was advised she likely had a rotator cuff injury needed to follow up with orthopedics. Patient returns today for continued pain. Patient states that she was helping her shoulder would improve so she had not yet contacted orthopedics for follow-up. She has been alternating Tylenol and Motrin. She's been applying ice and trying to take warm showers to relax the muscles but has persistent discomfort in the shoulder. Patient presents early this morning stating she hasn't been able to sleep all night due to the pain in her shoulder. MD Complaint: Injury to:: left, shoulder Onset/Timin -: week(s) Other Injuries: none Place: home Improves With: cold therapy, immobilization Worsens With: movement of extremity Context: other (Arm was pulled by her leashed dog) Associated Symptoms: weakness - Related Data Home Medications Medication Instructions Recorded Confirmed ALPRAZolam [Xanax] 0.25 mg PO BID PRN 09/15/17 06/14/18 traMADol HCL [Ultram] 50 mg PO TID PRN 09/15/17 06/14/18 Meloxicam [Mobic] 15 mg PO DAILY 06/14/18 06/14/18 Omeprazole [PriLOSEC] 20 mg PO BID 06/14/18 06/14/18 Previous Rx's Medication Instructions Recorded Cyclobenzaprine [Flexeril] 10 mg PO TID #20 tab 06/14/18 Ketorolac [Toradol] 10 mg PO Q6HR #15 tab 06/14/18 dexAMETHasone [Dexamethasone] 0.75 mg PO DAILY #12 tab 06/14/18 Polymyxin B-Trimeth Sulf Ophth 1 drops RIGHT EYE Q4H 5 Days #1 02/03/19 [Polytrim Opthalmic] bottle Albuterol Inhaler (Mhu) [Ventolin 1 - 2 puff INHALATION Q6HR PRN #1 02/07/19 Hfa Inhaler (Mhu)] inhaler predniSONE 60 mg PO DAILY #30 tab 02/07/19 Allergies Allergy/AdvReac Type Severity Reaction Status Date / Time No Known Allergies Allergy Verified 11/23/19 04:34 Review of Systems ROS Statement: Those systems with pertinent positive or pertinent negative responses have been documented in the HPI. ROS Other: All systems not noted in ROS Statement are negative. Past Medical History Past Medical History: No Reported History History of Any Multi-Drug Resistant Organisms: None Reported Past Surgical History: Cholecystectomy Past Psychological History: Anxiety Smoking Status: Current every day smoker Past Alcohol Use History: None Reported Past Drug Use History: None Reported General Exam - General Exam Comments Initial Comments: Physical Exam GENERAL: Patient is well-developed and well-nourished. Patient is nontoxic and well-hydrated and is in no distress. HENT: Normocephalic, Atraumatic. EYES: PERRL, EOMI PULMONARY: Unlabored respirations. 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, no paresthesias, radial and ulnar pulses strong Refill less than 2 seconds PSYCHIATRIC: No SI/HI Limitations: physical limitation Course Vital Signs 11/23/19 04:29 Temperature 97.8 F Pulse Rate 108 H Respiratory 18 Rate Blood Pressure 145/93 O2 Sat by Pulse 99 Oximetry Medical Decision Making - Medical Decision Making The patient was seen and evaluated, history is obtained from the patient and review of medical record Patient had normal x-ray last week she has persistent aching pain in her left shoulder Patient has not yet followed up with orthopedics I do suspect she likely has a rotator cuff injury based on history and physical exam and normal x-rays Patient tearful crying hasn't been able to sleep, IM morphine was given patient was given another starter pack of Tylenol No. 3 was advised she needs [facility] today as they may not be able to see her for a few days. All questions pertaining care were answered return parameters were discussed patient was discharged home in stable condition Disposition Clinical Impression: Rotator cuff injury, Left shoulder pain Disposition: HOME SELF-CARE Condition: Stable Additional Instructions: Contact [facility] today to establish follow-up Continue to alternate Tylenol and Motrin, apply heat or ice for relief Return to the ER for any worsening or development of new or concerning symptoms Is patient prescribed a controlled substance at d/c from ED?: No Referrals: None,Stated [Primary Care Provider] - 1-2 days
== END 2019-11-23 05:05 | disposition home or self-care (01) ==
LOC: EC 04:27
DX: S46.002A Unspecified injury of muscle(s) and tendon(s) of the rotator cuff of left shoulder, initial encounter (principal); F41.9 Anxiety disorder, unspecified; F17.200 Nicotine dependence, unspecified, uncomplicated; X50.3XXA Overexertion from repetitive movements, initial encounter; Y93.K1 Activity, walking an animal
CPT/HCPCS: 99283; 96372; J2270

== ENCOUNTER → 2020-01-05 | Outpatient (CLI) | payer OTHER ==
--- NOTE | 2020-01-06 06:42 | MR ---
MRI CERVICAL SPINE: CLINICAL HISTORY: Neck pain per order. Headache with neck pain for 3 months causing pain or weakness into left arm per patient. TECHNIQUE: Multiplanar, multisequence imaging of the cervical spine is performed without with IV cont rast. COMPARISON: Cervical spine x-ray November 28, 2019. FINDINGS: Sagittal images of the cervical spine show the craniocervical junction to appear within nor mal limits. The cervical and upper thoracic spinal cord is normal in course, caliber, and signal. Mata btle grade 1 retrolisthesis C5 on C6. Mild disc space narrowing C6-C7 level otherwise the vertebral b dru and intravertebral disk heights are normal. Mild to moderate anterior spurring C5-C6 and C6-C7 l evels. Small hemangioma involving the posterior C5 vertebra. Axial images show the C2-C3, C3-C4, and C4-C5 levels all to appear within normal limits. Axial images at the C5-C6 level shows broad-based left paracentral disc protrusion effacing the anter ior thecal sac and causing asymmetric mild to minimal left-sided neural foraminal narrowing. Axial images at the C6-C7 level showed broad base left paracentral disc protrusion effacing the anter ior thecal sac and causing mild to moderate left-sided neural foraminal narrowing. Finding most promi nent axial image 16. Axial images at C7-T1 level are within normal limits. IMPRESSION: Focal mild to moderate degenerative changes C5-C6 and C6-C7 level as detailed above.
== END | disposition home or self-care (01) ==
LOC: RADMRIMAIN 11:24
PROVIDERS: ATTEND Orthopaedic Surgery
DX: M47.812 Spondylosis without myelopathy or radiculopathy, cervical region (principal); M47.813 Spondylosis without myelopathy or radiculopathy, cervicothoracic region
CPT/HCPCS: 72141

== ENCOUNTER 2020-01-28 10:13 | Emergency (ER) | payer OTHER ==
[2020-01-28 10:29] VITALS: RESP 18
[2020-01-28] MEDS ORDERED: LORazepam 1 MG TAB PO STA (10:45)
[2020-01-28] MEDS ORDERED: IBUPROFEN 600 MG TAB PO STA (10:45)
[2020-01-28] MEDS ORDERED: PROPARACAINE 0.5% OPHTH DROPS 15 ML BTL BOTH EYES STA (10:45)
[2020-01-28] MEDS ORDERED: FLUORESCEIN STRIPS 1 MG STRIP BOTH EYES ONE (10:47)
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
[2020-01-28] MEDS ORDERED: ACET/COD 300 MG/30 MG STARTER PACK 6 TAB BTL PO STA (11:38)
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
[2020-01-28 12:26] VITALS: BP 126/77; PULSE 102; TEMP 98
== END 2020-01-28 12:25 | disposition home or self-care (01) ==
LOC: EC 10:13
DX: S00.12XA Contusion of left eyelid and periocular area, initial encounter (principal); H50.9 Unspecified strabismus; F41.9 Anxiety disorder, unspecified; F17.200 Nicotine dependence, unspecified, uncomplicated; Y04.0XXA Assault by unarmed brawl or fight, initial encounter
CPT/HCPCS: 70450; 70486; 72125; 99284

== ENCOUNTER 2020-08-02 22:33 | Emergency (ER) | payer OTHER ==
[2020-08-02 22:38] VITALS: TEMP 97.6
--- NOTE | 2020-08-02 22:57 | ED ---
General Adult HPI - General Chief complaint: Upper Respiratory Infection Stated complaint: COVID+, FRANK Time Seen by Provider: 08/02/20 22:41 Source: patient Mode of arrival: ambulatory Limitations: no limitations - History of Present Illness Initial comments: 39-year-old female presents emergency Department with chief complaint of elevated shortness of breath. Patient reports symptoms over the last 2-3 days but she tested positive yesterday for Covid. She reports having "lung pain". States she has pleuritic chest pain is exacerbated when taking deep breaths. She also reports dyspnea on exertion. Reports a fever of 101 at home and has been taking [id number] antipyretics. She is a current smoker but has not smoked since her symptoms began. Denies any nausea vomiting diarrhea. Does report 2 days of dizziness where the room was spinning around her but denies any lightheadedness. Denies any headaches, one-sided weakness of paresthesias or any visual changes. - Related Data Previous Rx's Medication Instructions Recorded Ibuprofen [Motrin] 600 mg PO Q8HR PRN #20 tab 01/28/20 Allergies Allergy/AdvReac Type Severity Reaction Status Date / Time No Known Allergies Allergy Verified 08/02/20 22:38 Review of Systems ROS Statement: Those systems with pertinent positive or pertinent negative responses have been documented in the HPI. ROS Other: All systems not noted in ROS Statement are negative. Past Medical History Past Medical History: No Reported History History of Any Multi-Drug Resistant Organisms: None Reported Past Surgical History: Cholecystectomy, Tubal Ligation, Uterine Ablation Past Psychological History: Anxiety Smoking Status: Current every day smoker Past Alcohol Use History: Rare Past Drug Use History: None Reported General Exam Limitations: no limitations General appearance: alert, in no apparent distress, obese Head exam: Present: atraumatic, normocephalic, normal inspection Eye exam: Present: normal appearance, PERRL, EOMI Pupils: Present: normal accommodation ENT exam: Present: normal exam, normal oropharynx, mucous membranes moist, TM's normal bilaterally, normal external ear exam Neck exam: Present: normal inspection, full ROM. Absent: tenderness Respiratory exam: Present: normal lung sounds bilaterally. Absent: respiratory distress, wheezes, rales, rhonchi, stridor, chest wall tenderness Cardiovascular Exam: Present: regular rate, normal rhythm, normal heart sounds. Absent: systolic murmur GI/Abdominal exam: Present: soft. Absent: distended, tenderness, guarding, rebound Extremities exam: Present: normal inspection, full ROM, normal capillary refill. Absent: tenderness, pedal edema, joint swelling Back exam: Present: normal inspection, full ROM. Absent: tenderness, CVA tenderness (R), CVA tenderness (L) Neurological exam: Present: alert, oriented X3 Psychiatric exam: Present: normal affect, normal mood Skin exam: Present: warm, dry, intact, normal color Course Vital Signs 08/02/20 08/02/20 22:35 23:26 Temperature 97.6 F Pulse Rate 101 H Respiratory 22 18 Rate Blood Pressure 151/82 O2 Sat by Pulse 96 Oximetry Medical Decision Making - Medical Decision Making 39-year-old female presents to the emergency room with a chief complaint of cough and congestion. A physical examination, patient does not appear to be in any respiratory distress. Vital signs within normal limits. Lungs are clear to auscultation. EKG showing no acute ischemic changes. Chest x-ray is unremarkable. CBC shows mild leukocytosis of 11.2. Coags within normal limits. D-dimer is negative. CBC unremarkable. Covid protocol discussed with patient. Advised to take antipyretics at home. Fluids and quarantine. Return parameters were discussed with patient is upsetting agreeable. Case discussed with - Lab Data Result diagrams: 08/02/20 23:08 08/02/20 23:08 Lab Results 08/02/20 08/02/20 08/02/20 Range/Units 23:08 23:08 23:08 WBC 11.7 H (3.8-10.6) k/uL RBC 4.94 (3.80-5.40) m/uL Hgb 14.4 (11.4-16.0) gm/dL Hct 44.1 (34.0-46.0) % MCV 89.3 (80.0-100.0) fL MCH 29.2 (25.0-35.0) pg MCHC 32.7 (31.0-37.0) g/dL RDW 13.6 (11.5-15.5) % Plt Count 331 (150-450) k/uL MPV 7.9 Neutrophils % 57 % Lymphocytes % 32 % Monocytes % 5 % Eosinophils % 5 % Basophils % 1 % Neutrophils # 6.6 (1.3-7.7) k/uL Lymphocytes # 3.7 (1.0-4.8) k/uL Monocytes # 0.6 (0-1.0) k/uL Eosinophils # 0.6 (0-0.7) k/uL Basophils # 0.1 (0-0.2) k/uL PT 9.4 (9.0-12.0) sec INR 0.9 (<1.2) APTT 23.7 (22.0-30.0) sec D-Dimer 0.38 (<0.60) mg/L FEU Sodium 137 (137-145) mmol/L Potassium 4.1 (3.5-5.1) mmol/L Chloride 105 (98-107) mmol/L Carbon Dioxide 24 (22-30) mmol/L Anion Gap 8 mmol/L BUN 14 (7-17) mg/dL Creatinine 0.57 (0.52-1.04) mg/dL Est GFR (CKD-EPI)AfAm >90 (>60 ml/min/1.73 sqM) Est GFR (CKD-EPI)NonAf >90 (>60 ml/min/1.73 sqM) Glucose 121 H (74-99) mg/dL Calcium 10.4 H (8.4-10.2) mg/dL Magnesium 1.6 (1.6-2.3) mg/dL Total Bilirubin 0.3 (0.2-1.3) mg/dL AST 21 (14-36) U/L ALT 16 (4-34) U/L Alkaline Phosphatase 77 (38-126) U/L Troponin I (0.000-0.034) ng/mL Total Protein 7.2 (6.3-8.2) g/dL Albumin 4.3 (3.5-5.0) g/dL 08/02/20 Range/Units 23:08 WBC (3.8-10.6) k/uL RBC (3.80-5.40) m/uL Hgb (11.4-16.0) gm/dL Hct (34.0-46.0) % MCV (80.0-100.0) fL MCH (25.0-35.0) pg MCHC (31.0-37.0) g/dL RDW (11.5-15.5) % Plt Count (150-450) k/uL MPV Neutrophils % % Lymphocytes % % Monocytes % % Eosinophils % % Basophils % % Neutrophils # (1.3-7.7) k/uL Lymphocytes # (1.0-4.8) k/uL Monocytes # (0-1.0) k/uL Eosinophils # (0-0.7) k/uL Basophils # (0-0.2) k/uL PT (9.0-12.0) sec INR (<1.2) APTT (22.0-30.0) sec D-Dimer (<0.60) mg/L FEU Sodium (137-145) mmol/L Potassium (3.5-5.1) mmol/L Chloride (98-107) mmol/L Carbon Dioxide (22-30) mmol/L Anion Gap mmol/L BUN (7-17) mg/dL Creatinine (0.52-1.04) mg/dL Est GFR (CKD-EPI)AfAm (>60 ml/min/1.73 sqM) Est GFR (CKD-EPI)NonAf (>60 ml/min/1.73 sqM) Glucose (74-99) mg/dL Calcium (8.4-10.2) mg/dL Magnesium (1.6-2.3) mg/dL Total Bilirubin (0.2-1.3) mg/dL AST (14-36) U/L ALT (4-34) U/L Alkaline Phosphatase (38-126) U/L Troponin I <0.012 (0.000-0.034) ng/mL Total Protein (6.3-8.2) g/dL Albumin (3.5-5.0) g/dL Disposition Clinical Impression: COVID-19 Disposition: HOME SELF-CARE Condition: Stable Instructions (If sedation given, give patient instructions): Coronavirus Disease 2019 (COVID-19) Additional Instructions: Please return to the Emergency Department if symptoms worsen or any other concerns. Is patient prescribed a controlled substance at d/c from ED?: No Referrals: None,Stated [Primary Care Provider] - 1-2 days Time of Disposition: 00:17
--- NOTE | 2020-08-02 23:12 | XR ---
EXAMINATION TYPE: XR chest 1V portable DATE OF EXAM: 08/02/2020 COMPARISON: 02/07/2019 HISTORY: Chest pain TECHNIQUE: Single view FINDINGS: Heart and mediastinum are normal. Lungs are clear. Diaphragm is normal. Bony thorax is inta ct. IMPRESSION: Normal chest. No change.
[2020-08-02 23:15] LABS: Basophils # (A) 0.1 k/uL (0-0.2); Basophils % (A) 1 %; Eosinophils # (A) 0.6 k/uL (0-0.7); Eosinophils % (A) 5 %; HCT 44.1 % (34.0-46.0); HGB 14.4 gm/dL (11.4-16.0); Lymphocytes # (A) 3.7 k/uL (1.0-4.8); Lymphocytes % (A) 32 %; MCH 29.2 pg (25.0-35.0); MCHC 32.7 g/dL (31.0-37.0); MCV 89.3 fL (80.0-100.0); Mean Platelet Volume 7.9; Monocytes # (A) 0.6 k/uL (0-1.0); Monocytes % (A) 5 %; Neutrophils # (A) 6.6 k/uL (1.3-7.7); Neutrophils % (A) 57 %; Platelet Count 331 k/uL (150-450); RBC 4.94 m/uL (3.80-5.40); RDW 13.6 % (11.5-15.5); WBC 11.7 k/uL (3.8-10.6)
[2020-08-02 23:24] LABS: ALT 16 U/L (4-34); AST 21 U/L (14-36); African American GFR (CKD) >90 (>60 ml/min/1.73 sqM); Albumin 4.3 g/dL (3.5-5.0); Alkaline Phosphatase 77 U/L (38-126); Anion Gap 8 mmol/L; Blood Urea Nitrogen 14 mg/dL (7-17); Calcium 10.4 mg/dL (8.4-10.2); Carbon Dioxide 24 mmol/L (22-30); Chloride 105 mmol/L (98-107); Glucose 121 mg/dL (74-99); Magnesium 1.6 mg/dL (1.6-2.3); Non-African American GFR(CKD) >90 (>60 ml/min/1.73 sqM); Potassium 4.1 mmol/L (3.5-5.1); Sodium 137 mmol/L (137-145); Total Bilirubin 0.3 mg/dL (0.2-1.3); Total Protein 7.2 g/dL (6.3-8.2)
[2020-08-02 23:28] VITALS: RESP 18
[2020-08-02 23:32] LABS: D-Dimer 0.38 mg/L FEU (<0.60); INR 0.9 (<1.2); Partial Thromboplastin Time 23.7 sec (22.0-30.0); Prothrombin Time 9.4 sec (9.0-12.0)
[2020-08-03 00:48] VITALS: BP 150/113; PULSE 84
== END 2020-08-03 00:48 | disposition home or self-care (01) ==
LOC: EC 22:33
DX: U07.1 COVID-19 (principal); F41.9 Anxiety disorder, unspecified; F17.200 Nicotine dependence, unspecified, uncomplicated
CPT/HCPCS: 36415; 71045; 80053; 83735; 84484; 85025; 85379; 85610; 85730; 93005; 99285

== ENCOUNTER 2021-06-24 10:11 | Inpatient (IN) | payer OTHER, MEDICAID ==
--- NOTE | 2021-06-24 10:59 | ED ---
Psych HPI - General Chief Complaint: Psychiatric Symptoms Stated Complaint: EPS Eval Time Seen by Provider: 06/24/21 10:28 Source: patient, RN notes reviewed Mode of arrival: ambulatory Limitations: no limitations - History of Present Illness Initial Comments: This a 40-year-old female presents emergency Department with chief complaint of depression. Patient states she's been having worsening depression over the last several months. Patient was told that she just needed tough it out. Patient states that she was on medications in the past for depression. She states that she has had thoughts of wishing she never woke up. Patient denies any significant alcohol abuse or drug abuse at this time. Patient denies any physical complaints. Patient on no current antidepressants. - Related Data Home Medications Medication Instructions Recorded Confirmed No Known Home Medications 06/24/21 06/24/21 Allergies Allergy/AdvReac Type Severity Reaction Status Date / Time No Known Allergies Allergy Verified 06/24/21 11:24 Review of Systems ROS Statement: Those systems with pertinent positive or pertinent negative responses have been documented in the HPI. ROS Other: All systems not noted in ROS Statement are negative. Past Medical History Past Medical History: No Reported History History of Any Multi-Drug Resistant Organisms: None Reported Past Surgical History: Cholecystectomy, Tubal Ligation, Uterine Ablation Past Psychological History: Anxiety Smoking Status: Current every day smoker Past Alcohol Use History: Rare Past Drug Use History: None Reported General Exam Limitations: no limitations General appearance: alert, in no apparent distress Head exam: Present: atraumatic, normocephalic, normal inspection Eye exam: Present: normal appearance, PERRL, EOMI. Absent: scleral icterus, conjunctival injection, periorbital swelling ENT exam: Present: normal exam, normal oropharynx, mucous membranes moist Neck exam: Present: normal inspection, full ROM. Absent: tenderness, meningismus, lymphadenopathy Respiratory exam: Present: normal lung sounds bilaterally. Absent: respiratory distress, wheezes, rales, rhonchi, stridor Cardiovascular Exam: Present: regular rate, normal rhythm, normal heart sounds. Absent: systolic murmur, diastolic murmur, rubs, gallop, clicks GI/Abdominal exam: Present: soft, normal bowel sounds. Absent: distended, tenderness, guarding, rebound, rigid Neurological exam: Present: alert Psychiatric exam: Present: depressed, flat affect Skin exam: Present: warm, dry, intact, normal color. Absent: rash Course Vital Signs 06/24/21 06/24/21 06/24/21 10:25 11:01 13:00 Temperature 98.4 F Pulse Rate 111 H 93 Respiratory 20 16 Rate Blood Pressure 148/79 152/95 O2 Sat by Pulse 99 97 Oximetry Medical Decision Making - Medical Decision Making Patient was evaluated he has case discussed Dr. Mckeon recommends patient be admitted for psychiatric treatment. Disposition Clinical Impression: Depression Disposition: ADMITTED IP TO THIS HOSP Referrals: None,Stated [Primary Care Provider] - 1-2 days
[2021-06-24 13:02] VITALS: RESP 16
[2021-06-24] MEDS ORDERED: LORazepam 1 MG TAB PO STA (13:04)
[2021-06-24 13:13] LABS: Amphetamine Screen,Urine Detected (NotDetected); Barbiturate Screen,Urine Not Detected (NotDetected); Benzodiazepines Screen,Urine Detected (NotDetected); Cocaine Screen,Urine Not Detected (NotDetected); Methadone Screen, Urine Not Detected (NotDetected); Opiate Screen,Urine Detected (NotDetected); Oxycodone Screen, Urine Detected (NotDetected); Phencyclidine Screen,Urine Not Detected (NotDetected); Tricyclic Antidepressant,Urine Not Detected (NotDetected); Urn Cannabinoid Scrn Not Detected (NotDetected)
[2021-06-24] MEDS ORDERED: MAGNESIUM HYDROXIDE 2,400 MG/10 ML CUP PO PRN (15:00)
[2021-06-24] MEDS ORDERED: MAG HYDROX/AL HYDROX/SIMETH 30 ML CUP PO PRN (15:00)
[2021-06-24] MEDS ORDERED: LORazepam 1 MG TAB PO PRN (15:00)
[2021-06-24] MEDS ORDERED: ACETAMINOPHEN TAB 325 MG TAB PO PRN (15:00)
[2021-06-24] MEDS ORDERED: LORazepam 2 MG/ML INJ IM PRN (15:01)
[2021-06-24] MEDS ORDERED: traZODone HCL 50 MG TAB PO PRN (15:01)
[2021-06-24] MEDS: NICOTINE 14MG/24HR PATCH TRANSDERM SCH (16:18)
--- NOTE | 2021-06-24 16:44 | P.MDCNMH ---
History of Present Illness H&P Date: 06/24/21 Chief Complaint: Medical management 40-year-old woman with no medical history except for obesity class II presented for anxiety/depression, suicidal ideation. Medicine was consulted for medical management by the psychiatry team. Patient has no complaints at this time inclu ding the denial of fevers, chills, nausea, vomiting, chest pain, palpitations, syncopal, presyncope, cough, dyspnea, abdominal pain, constipation, diarrhea, dysuria, dyschezia, numbness/weakness of extremities. Upon my evaluation, patient is afebrile, 127/89, heart rate 82, 98% on room air. Urine tox screen is significant for opiates, oxycodone, amphetamine, methamphetamine, benzodiazepines. Covid was negative. All Systems reviewed and pertinent positives and negatives noted in HPI, all other symptoms are negative Gen: awake, alert HEENT: normocephalic, atraumatic, good hearing acuity, moist mucous membranes Resp: good air exchange, breathing comfortably with no accessory muscle use CVS: good distal perfusion x 4, GI: soft, NTTP, ND : no SPT, no CVAT, jolly catheter not present MSK: no pitting edema, no clubbing Neuro: non-focal, moving all extremities Psych: cooperative, euthymic mood Labs are reviewed as above, no imaging to review. Assessment/plan: Obesity, class II -Recommend outpatient weight loss referral -Patient should have PCP screen patient for diabetes, hyperlipidemia Polysubstance abuse Depression -Management per mental health team Patient is a full code Thank you for this consult. Lumbar vertebral is available 20/10 should any questions or concerns arise please reach out via perfect serve Past Medical History Past Medical History: No Reported History History of Any Multi-Drug Resistant Organisms: None Reported Past Surgical History: Cholecystectomy, Tubal Ligation, Uterine Ablation Past Psychological History: Anxiety Smoking Status: Current every day smoker Past Alcohol Use History: Rare Past Drug Use History: None Reported Medications and Allergies Home Medications Medication Instructions Recorded Confirmed Type No Known Home Medications 06/24/21 06/24/21 History Allergies Allergy/AdvReac Type Severity Reaction Status Date / Time No Known Allergies Allergy Verified 06/24/21 11:24 Physical Exam Osteopathic Statement: *. No significant issues noted on an osteopathic structural exam other than those noted in the History and Physical/Consult. Vitals: Vital Signs Temp Pulse Resp BP Pulse Ox 06/24/21 15:13 82 16 127/89 98 06/24/21 13:00 93 16 152/95 97 06/24/21 11:01 99 06/24/21 10:25 98.4 F 111 H 20 148/79 Intake and Output 06/24/21 06/24/21 06/24/21 06:59 14:59 22:59 Other: Weight 99.79 kg Cranial Nerve Examination - Cranial Nerves Cranial Nerve II- Optic: Intact Cranial Nerve III- Oculomotor: Intact Cranial Nerve IV- Trochlear: Intact Cranial Nerve V- Trigeminal: Intact Cranial Nerve - Abducens: Intact Cranial Nerve VII- Facial: Intact Cranial Nerve VIII- Auditory: Intact Cranial Nerve IX- Glossopharyngeal: Intact Cranial Nerve X- Vagus: Intact Cranial Nerve XI- Accessory: Intact Cranial Nerve XII- Hypoglossal: Intact Results Labs: Abnormal Lab Results - Last 24 Hours (Table) 06/24/21 Range/Units 11:15 Urine Opiates Screen Detected H (NotDetected) Ur Oxycodone Screen Detected H (NotDetected) Ur Amphetamines Screen Detected H (NotDetected) U Methamphetamines Scrn Detected H (NotDetected) U Benzodiazepines Scrn Detected H (NotDetected)
[2021-06-25] MEDS: NICOTINE 14MG/24HR PATCH TRANSDERM SCH (08:47)
[2021-06-25 10:10] LABS: Basophils # (A) 0.1 k/uL (0-0.2); Basophils % (A) 1 %; Eosinophils # (A) 0.2 k/uL (0-0.7); Eosinophils % (A) 2 %; HCT 47.1 % (34.0-46.0); HGB 15.1 gm/dL (11.4-16.0); Lymphocytes # (A) 1.9 k/uL (1.0-4.8); Lymphocytes % (A) 17 %; MCH 29.7 pg (25.0-35.0); MCV 92.9 fL (80.0-100.0); Mean Platelet Volume 8.4; Monocytes # (A) 0.6 k/uL (0-1.0); Monocytes % (A) 5 %; Neutrophils % (A) 73 %; Platelet Count 352 k/uL (150-450); RBC 5.07 m/uL (3.80-5.40); WBC 10.9 k/uL (3.8-10.6)
[2021-06-25 10:30] LABS: ALT 26 U/L (4-34); AST 27 U/L (14-36); African American GFR (CKD) >90 (>60 ml/min/1.73 sqM); Albumin 4.6 g/dL (3.5-5.0); Alkaline Phosphatase 54 U/L (38-126); Anion Gap 8 mmol/L; Blood Urea Nitrogen 14 mg/dL (7-17); Calcium 9.8 mg/dL (8.4-10.2); Carbon Dioxide 25 mmol/L (22-30); Chloride 104 mmol/L (98-107); Glucose 124 mg/dL (74-99); Non-African American GFR(CKD) 83 (>60 ml/min/1.73 sqM); Potassium 4.8 mmol/L (3.5-5.1); Sodium 137 mmol/L (137-145); Total Bilirubin 0.9 mg/dL (0.2-1.3); Total Protein 8.1 g/dL (6.3-8.2)
--- NOTE | 2021-06-25 12:07 | P.HP ---
Psychiatric H&P - . H&P Date: 06/25/21 History & Physical: Allergies Allergy/AdvReac Type Severity Reaction Status Date / Time No Known Allergies Allergy Verified 06/24/21 11:24 Vital Signs Temp 98.7 F 06/25/21 07:02 Pulse 93 06/25/21 07:02 Resp 16 06/24/21 16:17 BP 113/66 06/25/21 07:02 Pulse Ox 97 06/25/21 07:02 Intake & Output 06/24/21 06/25/21 06/25/21 18:59 06:59 18:59 Weight 99.79 kg Laboratory Last Values WBC 10.9 k/uL (3.8-10.6) H 06/25/21 09:47 RBC 5.07 m/uL (3.80-5.40) 06/25/21 09:47 Hgb 15.1 gm/dL (11.4-16.0) 06/25/21 09:47 Hct 47.1 % (34.0-46.0) H 06/25/21 09:47 MCV 92.9 fL (80.0-100.0) 06/25/21 09:47 MCH 29.7 pg (25.0-35.0) 06/25/21 09:47 MCHC 32.0 g/dL (31.0-37.0) 06/25/21 09:47 RDW 13.0 % (11.5-15.5) 06/25/21 09:47 Plt Count 352 k/uL (150-450) 06/25/21 09:47 MPV 8.4 06/25/21 09:47 Neutrophils % 73 % 06/25/21 09:47 Lymphocytes % 17 % 06/25/21 09:47 Monocytes % 5 % 06/25/21 09:47 Eosinophils % 2 % 06/25/21 09:47 Basophils % 1 % 06/25/21 09:47 Neutrophils # 8.0 k/uL (1.3-7.7) H 06/25/21 09:47 Lymphocytes # 1.9 k/uL (1.0-4.8) 06/25/21 09:47 Monocytes # 0.6 k/uL (0-1.0) 06/25/21 09:47 Eosinophils # 0.2 k/uL (0-0.7) 06/25/21 09:47 Basophils # 0.1 k/uL (0-0.2) 06/25/21 09:47 Sodium 137 mmol/L (137-145) 06/25/21 09:47 Potassium 4.8 mmol/L (3.5-5.1) 06/25/21 09:47 Chloride 104 mmol/L (98-107) 06/25/21 09:47 Carbon Dioxide 25 mmol/L (22-30) 06/25/21 09:47 Anion Gap 8 mmol/L 06/25/21 09:47 BUN 14 mg/dL (7-17) 06/25/21 09:47 Creatinine 0.88 mg/dL (0.52-1.04) 06/25/21 09:47 Est GFR (CKD-EPI)AfAm >90 (>60 ml/min/1.73 sqM) 06/25/21 09:47 Est GFR (CKD-EPI)NonAf 83 (>60 ml/min/1.73 sqM) 06/25/21 09:47 Glucose 124 mg/dL (74-99) H 06/25/21 09:47 Calcium 9.8 mg/dL (8.4-10.2) 06/25/21 09:47 Total Bilirubin 0.9 mg/dL (0.2-1.3) 06/25/21 09:47 AST 27 U/L (14-36) 06/25/21 09:47 ALT 26 U/L (4-34) 06/25/21 09:47 Alkaline Phosphatase 54 U/L (38-126) 06/25/21 09:47 Total Protein 8.1 g/dL (6.3-8.2) 06/25/21 09:47 Albumin 4.6 g/dL (3.5-5.0) 06/25/21 09:47 TSH 0.736 mIU/L (0.465-4.680) 06/25/21 09:47 Urine Opiates Screen Detected (NotDetected) H 06/24/21 11:15 Ur Oxycodone Screen Detected (NotDetected) H 06/24/21 11:15 Urine Methadone Screen Not Detected (NotDetected) 06/24/21 11:15 Ur Propoxyphene Screen Not Detected (NotDetected) 06/24/21 11:15 Ur Barbiturates Screen Not Detected (NotDetected) 06/24/21 11:15 U Tricyclic Antidepress Not Detected (NotDetected) 06/24/21 11:15 Ur Phencyclidine Scrn Not Detected (NotDetected) 06/24/21 11:15 Ur Amphetamines Screen Detected (NotDetected) H 06/24/21 11:15 U Methamphetamines Scrn Detected (NotDetected) H 06/24/21 11:15 U Benzodiazepines Scrn Detected (NotDetected) H 06/24/21 11:15 Urine Cocaine Screen Not Detected (NotDetected) 06/24/21 11:15 U Marijuana (THC) Screen Not Detected (NotDetected) 06/24/21 11:15 Coronavirus (PCR) Not Detected (Not Detectd) 06/24/21 12:57 06/25/21 12:01 IDENTIFYING DATA: Patient is a 40-year-old female who currently lives with HER-2 kids, is and lives in a house. 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 HPI: Patient presented to the hospital complaining of depression and suicidal thoughts. Patient's urine drug screen is positive for benzodiazepines and amphetamines methamphetamine opiates and oxycodone. Patient was denying any drug use in the ER. She was admitted voluntarily to the mental health unit. She was agreeable to speak to instructional writer today and appeared to be fairly evasive and guarded about her drug use and was mainly focusing on her depression. She states that she has been feeling worthless and fearful along with "dread" for the past several months. She also endorsed feeling hopeless. She states that her anxiety has been elevated. She states that she did try a [place] once given to her by her friend. She also states that she tried methamphetamine recently and states that "that's usually not like me to try this style of" and states that she just wanted to feel "numb". She states that she wants to stay alive for her children which is a protective factor. She claims that she has been undergoing some financial stress recently and took her a "long time to find a job". She states that she also lost her mother in October 2019. She claims that she got covid in july of last year and started feeling depressed by august. States that her sleep has been poor. Patient denies any suicidal or homicidal ideations intent or plan. At this time patient denies any auditory or visual hallucinations. Patient denies any flight of ideas racing thoughts and increased in goal directed behavior. Patient admits to using cigarettes daily. She claims that she tried methamphetamine and opiate pills once as noted above. PAST PSYCHIATRIC HISTORY: Patient states that she has a history of depression. She claims that she used to be on Prozac in the past for depression which was over 15 years ago. Patient denies any previous psychiatric hospitalizations. Patient denies any psychiatric outpatient follow-up. Patient denies any history of suicide attempts in the past. PMH: As per medicine H&P ALLERGIES: as per EMR CHEMICAL DEPENDENCY HISTORY: as per HPI FAMILY PSYCHIATRIC/SUBSTANCE USE HISTORY: Claims that her mother had questionable bipolar and also alcohol use. SOCIAL HISTORY: Patient was born and raised in [facility] and states that she was also raised in [place]. States that she competed high school. She claims that she has never been to group home. She has 2 kids and is currently . They live in a house. 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 MENTAL STATUS EXAM: General Appearance: Patient appears to be overweight, stated age is alert, guarded and evasive. Patient appears to have poor hygiene and grooming. Behavior: Patient is seated without any agitated behavior. Guarded. Speech: Patient's speech is fluent and nonpressured. Mood/Affect: Patient reports their mood is depressed and worthless, affect is congruent and constricted. Suicidality/Homicidality: Patient denies having any homicidal ideation intent or plan. Denies any suicidal ideations intent or plan Perceptions: Patient denies any visual hallucinations and denies any auditory hallucinations Though content/process: There is no evidence of any delusional thought content and thought process is linear and goal-directed. Minimizing her drug use. Memory and concentration: AOX3, grossly intact for the purposes of this session. Can spell "WORLD" backwards Judgment and insight: poor STRENGTHS/WEAKNESSES: strength is that patient is resilient. Weakness is that patient has poor judgment and is impulsive INTELLECT: average IMPRESSIONS: Major depressive disorder, without psychotic features Methamphetamine abuse Opioid abuse Nicotine dependence PLAN: -Patient is admitted under voluntary status to MHU for stabilization of psychiatric symptoms and safety. Patient has signed adult voluntary form and medication consent and is placed in patient's chart. -Medications : Will start patient on Zoloft 50 mg daily for mood/anxiety, trazodone 50 mg daily at bedtime for insomnia/mood. -Ativan and Haldol PRN for agitation/aggression -Patient was counselled on substance abuse and desired to cut back on use on her own and does not want to go to rehab. -Patient was informed of the risks, benefits and side effects of the medication and patient verbally consented to taking the medications. Patient signed med consent form and was placed in chart. -Internal Medicine consult to perform medical evaluation and physical. -NRT - nicotine patch -SW on board for discharge planning. Encourage patient to participate in groups to work on coping skills. 06/25/21 12:06
[2021-06-25] MEDS: SERTRALINE 50 MG TAB PO SCH (12:16)
[2021-06-25 15:08] LABS: Chol/HDL Ratio 4.75 Ratio; LDL Cholesterol,Calculated 158.2 mg/dL (0.0-131.0)
[2021-06-25 17:14] LABS: Appearance,Urine Cloudy (Clear); Bacteria,Urine Many /hpf; Bilirubin,Urine Negative (Negative); Blood,Urine Negative (Negative); Color,Urine Yellow; Glucose,Urine (UA) Negative (Negative); Ketones,Urine Negative (Negative); Leukocyte Esterase,Urine Small (Negative); Mucus,Urine Occasional /hpf; Nitrite,Urine Negative (Negative); PH, Urine 5.5 (5.0-8.0); Protein,Urine Negative (Negative); RBC,Urine 1 /hpf (0-5); Specific Gravity,Urine 1.014 (1.001-1.035); Squamous Epithelial Cell,Urine 3 /hpf (0-4); Urobilinogen,Urine <2.0 mg/dL (<2.0); WBC,Urine 9 /hpf (0-5)
[2021-06-25] MEDS: traZODone HCL 50 MG TAB PO SCH (20:33)
[2021-06-26 07:08] VITALS: TEMP 97.6
[2021-06-26] MEDS: NICOTINE 14MG/24HR PATCH TRANSDERM SCH (08:29)
[2021-06-26] MEDS: SERTRALINE 50 MG TAB PO SCH (08:29)
--- NOTE | 2021-06-26 10:28 | P.PN ---
Progress Note - Text Progress Note Date: 06/26/21 Interval History: Patient was seen wandering the hallways and was directable and agreeable to robby oro with remote mortgage underwriter in the office. She states that she has been going to groups and has been doing significantly better since yesterday. She states that her mood and anxiety but improving. She states that she feels still anxiety being here on the unit and states that that is still a "work in progress". She states that she misses her dogs and her children at home. She claims that she does not know why she was making very poor decisions prior to coming into the hospital. She is denying any side effects at this time. She states that she slept fairly last night with the trazodone and wants to remain on the same dose. She is able to have her Zoloft increased for tomorrow. At this time patient denies any suicidal or homical ideations, intent or plan. Patient denies any auditory, visual hallu cinations and denies any paranoia or delusions. Patient denies any side effects from the medications and has been compliant with meds. Mental Status Exam: General Appearance: Patient appears to be overweight, stated age is alert, more cooperative today. Patient appears to have poor hygiene and grooming. Behavior: Patient is seated without any agitated behavior. More cooperative today. Speech: Patient's speech is fluent and nonpressured. Mood/Affect: Patient reports their mood is better affect is congruent Suicidality/Homicidality: Patient denies having any homicidal ideation intent or plan. Denies any suicidal ideations intent or plan Perceptions: Patient denies any visual hallucinations and denies any auditory hallucinations Though content/process: There is no evidence of any delusional thought content and thought process is linear and goal-directed. Memory and concentration: AOX3, grossly intact for the purposes of this session Judgment and insight: Improving mildly IMPRESSIONS: Major depressive disorder, without psychotic features Methamphetamine abuse Opioid abuse Nicotine dependence Plan: -Patient continues to meet criteria for inpatient psychiatric admission for sy mptom stabilization and safety. Patient has signed adult voluntary form and medication consent and was placed in patient's chart. -Medications: Increase Zoloft to 100 mg daily for mood/anxiety, trazodone 50 mg daily at bedtime for insomnia/mood. -When necessary Ativan and Haldol for agitation/aggression. -NRT - nicotine patch -SW on board for discharge planning. Encouraged the patient to participate in milieu. Likely discharge back home tomorrow. pt is refusing rehab.
[2021-06-26] MEDS: traZODone HCL 50 MG TAB PO SCH (20:43)
[2021-06-27 06:57] VITALS: BP 143/69; PULSE 69
[2021-06-27] MEDS: NICOTINE 14MG/24HR PATCH TRANSDERM SCH (08:20)
[2021-06-27] MEDS ORDERED: SERTRALINE 100 MG TAB PO SCH (09:00)
--- NOTE | 2021-06-27 10:01 | P.DS ---
Providers Date of admission: 06/24/21 14:54 Expected date of discharge: 06/27/21 Attending physician: Isidro Guevara MD Consults: 06/24/21 15:00 Consult Physician Routine Consulting Provider: Marlon Avendaño Consult Reason/Comments: H&P and medical Do you want consulting provider notified?: Yes Primary care physician: Stated None - Discharge Diagnosis(es) (1) Major depressive disorder without psychotic features Current Visit: Yes Status: Acute Priority: High (2) Methamphetamine abuse Current Visit: Yes Status: Acute Priority: High (3) Opioid abuse Current Visit: Yes Status: Acute Priority: Medium (4) Nicotine dependence Current Visit: Yes Status: Acute Priority: Low Hospital Course: Admission HPI: Admission note was completed by curriculum writer "Patient is a 40-year-old female who currently lives with her 2 kids, is and lives in a house. 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 Patient presented to the hospital complaining of depression and suicidal thoughts. Patient's urine drug screen is positive for benzodiazepines and amphetamines methamphetamine opiates and oxycodone. Patient was denying any drug use in the ER. She was admitted voluntarily to the mental health unit. She was agreeable to speak to curriculum writer today and appeared to be fairly evasive and guarded about her drug use and was mainly focusing on her depression. She states that she has been feeling worthless and fearful along with "dread" for the past several months. She also endorsed feeling hopeless. She states that her anxiety has been elevated. She states that she did try a [place] once given to her by her friend. She also states that she tried methamphetamine recently and states that "that's usually not like me to try this style of" and states that she just wanted to feel "numb". She states that she wants to stay alive for her children which is a protective factor. She claims that she has been undergoing some financial stress recently and took her a "long time to find a job". She states that she also lost her mother in October 2019. She claims that she got covid in july of last year and started feeling depressed by august. States that her sleep has been poor. Patient denies any suicidal or homicidal ideations intent or plan. At this time patient denies any auditory or visual hallucinations. Patient denies any flight of ideas racing thoughts and increased in goal directed behavior. Patient admits to using cigarettes daily. She claims that she tried methamphetamine and opiate pills once as noted above." Hospital course: Upon admission to the unit patient was directable and agreeable to commence treatment and signed adult voluntary form . Patient got along well with other patients on the unit and followed unit protocol. Patient was compliant with the medications and denied any side effects throughout hospital course. Patient was started on Zoloft and increased to a dose of 100 mg daily for mood/anxiety, trazodone 50 mg daily at bedtime for insomnia/mood. Patient spoke of her stressors and engaged in therapy both group and individual. Patient was also seen by medical team for history and physical exam. Throughout the course of the hospitalization patient gradually improved with regards to mood, anxiety, sleep and became more future oriented with improved insight and judgment. On the day of discharge patient denied any suicidal or homicidal ideations intent or plan denied any auditory or visual hallucinations. Patient endorsed wanting to live for her children, grandchildren and also her health. The patient denied a [place] access to guns or weapons. Patient denied any paranoia and did not endorse any delusions. Patient does have a significant history of substance abuse and was counseled on abstaining from all substances including alcohol and marijuana. Patient was offered however declined inpatient substance-abuse rehab. Patient elected to do outpatient substance use treatment program. Patient was also counseled on the medications and need for regular compliance and was encouraged to follow-up with their outpatient appointment for mental health and also for primary care. Prior to discharge a family meeting will be arranged by pediatric social worker to answer any questions and ensure safety upon discharge. Mental status exam: General Appearance: Patient appears to be overweight, stated age is alert, pleasant, and cooperative. Patient is in no acute distress and has improved hygiene and grooming Behavior: Patient is calmly seated without any agitated behavior. Speech: Patient's speech is fluent and nonpressured. Mood/Affect: Patient reports their mood is "good", affect is congruent and euthymic. Suicidality/Homicidality: Patient denies having any suicidal or homicidal ideation intent or plan. Perceptions: Patient denies any auditory or visual hallucinations. Though content/process: There is no evidence of any delusional thought content and thought process is linear and goal-directed. more future oriented Memory and concentration: AOX3, grossly intact for the purposes of this session. Can spell "WORLD" backwards correctly. Judgment and insight: chronically poor, however has improved with guarded prognosis Impression: Major depressive disorder, without psychotic features Methamphetamine abuse Opioid abuse Nicotine dependence Plan: -Continue with discharge today as patient has improved and stabilized psychiatrically and is not currently an imminent threat to herself and/or others. Patient will remain at chronically elevated risk for harm to self and/or others due to her substance abuse. -Continue medications: Zoloft 100 mg daily for mood/anxiety, trazodone 50 g daily at bedtime for insomnia/mood. -Patient was counseled on the need for medication compliance and appropriate follow-up at mental health and also primary care for medical issues. Patient verbalized understanding and agreed. -Social work to arrange for and conduct family meeting to ensure safety upon discharge and answer any questions/concerns. Social work also to arrange for patients follow up appointments for psychiatric care along with follow up with primary care provider. -Patient counseled on abstaining from recreational drugs and marijuana and alcohol. Was informed/educated on the adverse effects on their physical and mental health. Patient verbally agreed and understood. Patient was offered substance abuse treatment however declined at this time. -Patient was instructed to return to the hospital or seek immediate medical care if their psychiatric or medical symptoms do worsen or reoccur. Allergies Allergy/AdvReac Type Severity Reaction Status Date / Time No Known Allergies Allergy Verified 06/24/21 11:24 Laboratory Results WBC 10.9 k/uL (3.8-10.6) H 06/25/21 09:47 RBC 5.07 m/uL (3.80-5.40) 06/25/21 09:47 Hgb 15.1 gm/dL (11.4-16.0) 06/25/21 09:47 Hct 47.1 % (34.0-46.0) H 06/25/21 09:47 MCV 92.9 fL (80.0-100.0) 06/25/21 09:47 MCH 29.7 pg (25.0-35.0) 06/25/21 09:47 MCHC 32.0 g/dL (31.0-37.0) 06/25/21 09:47 RDW 13.0 % (11.5-15.5) 06/25/21 09:47 Plt Count 352 k/uL (150-450) 06/25/21 09:47 MPV 8.4 06/25/21 09:47 Neutrophils % 73 % 06/25/21 09:47 Lymphocytes % 17 % 06/25/21 09:47 Monocytes % 5 % 06/25/21 09:47 Eosinophils % 2 % 06/25/21 09:47 Basophils % 1 % 06/25/21 09:47 Neutrophils # 8.0 k/uL (1.3-7.7) H 06/25/21 09:47 Lymphocytes # 1.9 k/uL (1.0-4.8) 06/25/21 09:47 Monocytes # 0.6 k/uL (0-1.0) 06/25/21 09:47 Eosinophils # 0.2 k/uL (0-0.7) 06/25/21 09:47 Basophils # 0.1 k/uL (0-0.2) 06/25/21 09:47 Sodium 137 mmol/L (137-145) 06/25/21 09:47 Potassium 4.8 mmol/L (3.5-5.1) 06/25/21 09:47 Chloride 104 mmol/L (98-107) 06/25/21 09:47 Carbon Dioxide 25 mmol/L (22-30) 06/25/21 09:47 Anion Gap 8 mmol/L 06/25/21 09:47 BUN 14 mg/dL (7-17) 06/25/21 09:47 Creatinine 0.88 mg/dL (0.52-1.04) 06/25/21 09:47 Est GFR (CKD-EPI)AfAm >90 (>60 ml/min/1.73 sqM) 06/25/21 09:47 Est GFR (CKD-EPI)NonAf 83 (>60 ml/min/1.73 sqM) 06/25/21 09:47 Glucose 124 mg/dL (74-99) H 06/25/21 09:[address] Glu mg/dL 115 06/25/21 09:47 Hemoglobin A1c 5.6 % (0.0-6.0) 06/25/21 09:47 Calcium 9.8 mg/dL (8.4-10.2) 06/25/21 09:47 Total Bilirubin 0.9 mg/dL (0.2-1.3) 06/25/21 09:47 AST 27 U/L (14-36) 06/25/21 09:47 ALT 26 U/L (4-34) 06/25/21 09:47 Alkaline Phosphatase 54 U/L (38-126) 06/25/21 09:47 Total Protein 8.1 g/dL (6.3-8.2) 06/25/21 09:47 Albumin 4.6 g/dL (3.5-5.0) 06/25/21 09:47 Triglycerides 113.00 mg/dL (0.00-149.00) 06/25/21 09:47 Cholesterol 229.00 mg/dL (0.00-200.00) H 06/25/21 09:47 LDL Cholesterol, Calc 158.2 mg/dL (0.0-131.0) H 06/25/21 09:47 VLDL Cholesterol, Calc 22.60 mg/dL (5.00-40.00) 06/25/21 09:47 HDL Cholesterol 48.20 mg/dL (40.00-60.00) 06/25/21 09:47 Cholesterol/HDL Ratio 4.75 Ratio 06/25/21 09:47 TSH 0.736 mIU/L (0.465-4.680) 06/25/21 09:47 Urine Color Yellow 06/25/21 16:55 Urine Appearance Cloudy (Clear) H 06/25/21 16:55 Urine pH 5.5 (5.0-8.0) 06/25/21 16:55 Ur Specific [place] 1.014 (1.001-1.035) 06/25/21 16:55 Urine Protein Negative (Negative) 06/25/21 16:55 Urine Glucose (UA) Negative (Negative) 06/25/21 16:55 Urine Ketones Negative (Negative) 06/25/21 16:55 Urine Blood Negative (Negative) 06/25/21 16:55 Urine Nitrite Negative (Negative) 06/25/21 16:55 Urine Bilirubin Negative (Negative) 06/25/21 16:55 Urine Urobilinogen <2.0 mg/dL (<2.0) 06/25/21 16:55 Ur Leukocyte Esterase Small (Negative) H 06/25/21 16:55 Urine RBC 1 /hpf (0-5) 06/25/21 16:55 Urine WBC 9 /hpf (0-5) H 06/25/21 16:55 Ur Squamous Epith Cells 3 /hpf (0-4) 06/25/21 16:55 Urine Bacteria Many /hpf (None) H 06/25/21 16:55 Urine Mucus Occasional /hpf (None) H 06/25/21 16:55 Urine HCG, Qual Not Detected (Not Detectd) 06/25/21 16:55 Urine Opiates Screen Detected (NotDetected) H 06/24/21 11:15 Ur Oxycodone Screen Detected (NotDetected) H 06/24/21 11:15 Urine Methadone Screen Not Detected (NotDetected) 06/24/21 11:15 Ur Propoxyphene Screen Not Detected (NotDetected) 06/24/21 11:15 Ur Barbiturates Screen Not Detected (NotDetected) 06/24/21 11:15 U Tricyclic Antidepress Not Detected (NotDetected) 06/24/21 11:15 Ur Phencyclidine Scrn Not Detected (NotDetected) 06/24/21 11:15 Ur Amphetamines Screen Detected (NotDetected) H 06/24/21 11:15 U Methamphetamines Scrn Detected (NotDetected) H 06/24/21 11:15 U Benzodiazepines Scrn Detected (NotDetected) H 06/24/21 11:15 Urine Cocaine Screen Not Detected (NotDetected) 06/24/21 11:15 U Marijuana (THC) Screen Not Detected (NotDetected) 06/24/21 11:15 Coronavirus (PCR) Not Detected (Not Detectd) 06/24/21 12:57 Vital Signs Temp 97.6 F 06/27/21 06:56 Pulse 69 06/27/21 06:56 Resp 16 06/27/21 06:56 BP 143/69 06/27/21 06:56 Pulse Ox 98 06/27/21 06:56 Patient Condition at Discharge: Stable Plan - Discharge Summary Discharge Rx Participant: No New Discharge Prescriptions: New Nicotine 14Mg/24Hr Patch [Habitrol] 1 patch TRANSDERM DAILY 14 Days patch traZODone HCL [Desyrel] 50 mg PO HS 30 Days tab Sertraline [Zoloft] 100 mg PO DAILY 30 Days tab Discharge Medication List Nicotine 14Mg/24Hr Patch [Habitrol] 1 patch TRANSDERM DAILY 14 Days patch 06/27/21 [Rx] Sertraline [Zoloft] 100 mg PO DAILY 30 Days tab 06/27/21 [Rx] traZODone HCL [Desyrel] 50 mg PO HS 30 Days tab 06/27/21 [Rx] Follow up Appointment(s)/Referral(s): [facility] [Outside] - 07/04/21 9:00 am (with panel lay up worker) [facility] [NON-STAFF] - 1 Week Patient Instructions/Handouts: How to Stop Smoking (DC), Depression (DC) Discharge Disposition: HOME SELF-CARE
== END 2021-06-27 11:54 | disposition home or self-care (01) | DRG 881 ==
LOC: EC 10:11 → 3MHU 14:54
PROVIDERS: ADMIT Psychiatry & Neurology Psychiatry; ATTEND Psychiatry & Neurology Psychiatry
DX: F32.9 Major depressive disorder, single episode, unspecified (principal); R45.851 Suicidal ideations; F15.10 Other stimulant abuse, uncomplicated; F11.10 Opioid abuse, uncomplicated; Z20.822 Contact with and (suspected) exposure to COVID-19; F41.9 Anxiety disorder, unspecified; G47.00 Insomnia, unspecified; E66.9 Obesity, unspecified; Z68.36 Body mass index [BMI] 36.0-36.9, adult; F17.210 Nicotine dependence, cigarettes, uncomplicated; Z71.6 Tobacco abuse counseling; Z90.49 Acquired absence of other specified parts of digestive tract; Z87.19 Personal history of other diseases of the digestive system; Z98.51 Tubal ligation status; Z87.42 Personal history of other diseases of the female genital tract; Z98.890 Other specified postprocedural states; Z71.51 Drug abuse counseling and surveillance of drug abuser; Z71.41 Alcohol abuse counseling and surveillance of alcoholic
CPT/HCPCS: 80053; 80061; 80306; 81001; 81025; 82075; 83036; 84443; 85025; 87635; 99285

== ENCOUNTER 2023-12-06 17:16 | Emergency (ER) | payer MEDICAID, OTHER ==
[2023-12-06 17:25] VITALS: TEMP 97.8
[2023-12-06] MEDS: DEXAMETHASONE SOD PHOSPHATE 10 MG/ML 1 ML VIAL IM STA (17:43)
--- NOTE | 2023-12-06 18:16 | US ---
EXAMINATION TYPE: US venous doppler duplex LE LT DATE OF EXAM: 12/06/2023 5:38 PM COMPARISON: NONE CLINICAL INDICATION: Female, 43 years old with history of swelling, numbness; lt lower leg pain/numbn ess SIDE PERFORMED: Left TECHNIQUE: The lower extremity deep venous system is examined utilizing real time linear array sonog mariangel with graded compression, doppler sonography and color-flow sonography. VESSELS IMAGED: Common Femoral Vein Deep Femoral Vein Greater Saphenous Vein * Femoral Vein Popliteal Vein Small Saphenous Vein * Proximal Calf Veins (* superficial vessels) Left Leg: Negative for DVT exam limited by habitus IMPRESSION: Grayscale, color doppler, spectral doppler imaging performed of the deep veins of the lo wer extremities. There is normal flow, compressibility, vascular waveforms.
--- NOTE | 2023-12-06 18:27 | ED ---
Extremity Problem HPI - General Chief complaint: Extremity Problem,Nontraumatic Stated complaint: swelling L leg/sore throat/fever Time Seen by Provider: 12/06/23 17:25 Source: patient Mode of arrival: ambulatory Limitations: no limitations - History of Present Illness Initial comments: 43-year-old female present with chief complaint of sore throat and right leg pain. Patient woke up today with a sore throat and fever. She states that her temperature was 100.9 at home. He has some minor congestion. No cough. No difficulty breathing or chest pain. No abdominal pain, nausea, vomiting, diarrhea. Patient also states that she is experiencing some pain and tingling in the left lower leg. This also started today. Patient does have history of degenerative disc disease. No new injury or trauma. No recent surgery or travel. No history of blood clots. No discoloration. No loss of bowel or bladder control or saddle paresthesia. - Related Data Home Medications Medication Instructions Recorded Confirmed Buprenorphine-Nalox 8-2 mg Tab 1 tab SUBLINGUAL TID 12/06/23 12/06/23 [Suboxone 8-2 mg Tab] Allergies Allergy/AdvReac Type Severity Reaction Status Date / Time No Known Allergies Allergy Verified 12/06/23 17:51 Review of Systems ROS Statement: Those systems with pertinent positive or pertinent negative responses have been documented in the HPI. ROS Other: All systems not noted in ROS Statement are negative. Past Medical History Past Medical History: No Reported History History of Any Multi-Drug Resistant Organisms: None Reported Past Surgical History: Cholecystectomy, Tubal Ligation, Uterine Ablation Past Anesthesia/Blood Transfusion Reactions: No Reported Reaction Past Psychological History: Anxiety Smoking Status: Current every day smoker, Vaper Past Alcohol Use History: Rare Past Drug Use History: None Reported General Exam Limitations: no limitations General appearance: alert, in no apparent distress Head exam: Present: atraumatic, normocephalic Eye exam: Present: normal appearance, EOMI. Absent: periorbital swelling ENT exam: Present: normal exam, normal oropharynx, mucous membranes moist, TM's normal bilaterally Neck exam: Present: normal inspection. Absent: meningismus Respiratory exam: Present: normal lung sounds bilaterally. Absent: respiratory distress, wheezes, rales, rhonchi, stridor Cardiovascular Exam: Present: regular rate, normal rhythm, normal heart sounds. Absent: systolic murmur, diastolic murmur, rubs, gallop, clicks Left Lower Leg exam: Present: full ROM. Absent: tenderness, swelling Neurovascular tendon exam: Present: no vascular compromise Neurological exam: Present: alert, oriented X3 Psychiatric exam: Present: normal affect, normal mood Skin exam: Present: warm, dry Course Vital Signs 12/06/23 12/06/23 17:23 18:29 Temperature 97.8 F Pulse Rate 85 79 Respiratory 20 16 Rate Blood Pressure 145/81 140/81 O2 Sat by Pulse 99 100 Oximetry Medical Decision Making - Medical Decision Making Was pt. sent in by a medical professional or institution (MARCO A Fierro, CLINICAL PSYCHOLOGY PROFESSOR, urgent care, hospital, or senior living...) When possible be specific @ -No Did you speak to anyone other than the patient for history (EMS, parent, family, police, friend...)? What history was obtained from this source @ -No Did you review nursing and triage notes (agree or disagree)? Why? @ -I reviewed and agree with nursing and triage notes Were old charts reviewed (outside hosp., previous admission, EMS record, old EKG, old radiological studies, urgent care reports/EKG's, senior living records)? Report findings @ -No old charts were reviewed Differential Diagnosis (chest pain, altered mental status, abdominal pain women, abdominal pain men, vaginal bleeding, weakness, fever, dyspnea, syncope, headache, dizziness, GI bleed, back pain, seizure, CVA, palpatations, mental health, musculoskeletal)? @ -Differential includes COVID, influenza, RSV, strep throat, DVT, r adiculopathy, this is not an all-inclusive list EKG interpreted by me (3pts min.). @ -As above X-rays interpreted by me (1pt min.). @ -None done CT interpreted by me (1pt min.). @ -None done U/S interpreted by me (1pt. min.). @ -Ultrasound is negative for DVT What testing was considered but not performed or refused? (CT, X-rays, U/S, labs)? Why? @ -None What meds were considered but not given or refused? Why? @ -None Did you discuss the management of the patient with other professionals (professionals i.e. MARCO A Fierro, CLINICAL PSYCHOLOGY PROFESSOR, lab, RT, psych nurse, social work faculty member, freelance court stenographer, teacher, field health officer, gearcase assembler)? Give summary @ -No Was smoking cessation discussed for >3mins.? @ -No Was critical care preformed (if so, how long)? @ -No Were there social determinants of health that impacted care today? How? (Homelessness, low income, unemployed, alcoholism, drug addiction, transportation, low edu. Level, literacy, decrease access to med. care, prison, rehab)? @ -No Was there de-escalation of care discussed even if they declined (Discuss DNR or withdrawal of care, Hospice)? DNR status @ -No What co-morbidities impacted this encounter? (DM, HTN, Smoking, COPD, CAD, Cancer, CVA, ARF, Chemo, Hep., AIDS, mental health diagnosis, sleep apnea, morbid obesity)? @ -None Was patient admitted / discharged? Hospital course, mention meds given and route, prescriptions, significant lab abnormalities, going to OR and other pertinent info. @ -43-year-old female presenting chief complaint of sore throat and left lower leg pain. History and physical examination are conducted. Patient is neuro vascularly intact. There is no discoloration or swelling. Leg is warm and has full range of motion. Normal HEENT exam. Heart lungs are clear to auscultation. She is negative for influenza, RSV, COVID, group A strep. Ultrasound negative for DVT. Patient was given 10 mg Decadron IM. On reassessment she reports improvement in her leg pain. He does have history of of degenerative disc disease. I believe that the pain is due to radiculopathy. I educated the patient on today's findings and supportive management at home. Discharged. Follow-up with PCP. Report back to ER with any new or worsening symptoms. Discussed return parameters and answered all questions. Patient conveyed verbal understanding and agreed to the plan. I discussed this case in detail with my attending Dr. Mcdermott Undiagnosed new problem with uncertain prognosis? @ -No Drug Therapy requiring intensive monitoring for toxicity (Heparin, Nitro, Insulin, Cardizem)? @ -No Were any procedures done? @ -No Diagnosis/symptom? @ -Pharyngitis, radiculopathy Acute, or Chronic, or Acute on Chronic? @ -Acute Uncomplicated (without systemic symptoms) or Complicated (systemic symptoms)? @ -Uncomplicated Side effects of treatment? @ -No Exacerbation, Progression, or Severe Exacerbation? @ -No Poses a threat to life or bodily function? How? (Chest pain, [place], [place], pneumonia, PE, COPD, DKA, ARF, appy, cholecystitis, CVA, Diverticulitis, Homicidal, Suicidal, threat to staff... and all critical care pts) @ -Unlikely - Lab Data Lab Results 12/06/23 12/06/23 Range/Units 17:40 17:40 Influenza Type A (PCR) Not Detected (Not Detectd) Influenza Type B (PCR) Not Detected (Not Detectd) RSV (PCR) Not Detected (Not Detectd) SARS-CoV-2 (PCR) Not Detected (Not Detectd) Group A Strep (PCR) NOT DETECTED (Not Detectd) Disposition Clinical Impression: Radiculopathy, Pharyngitis Disposition: HOME SELF-CARE Condition: Good Instructions (If sedation given, give patient instructions): Pharyngitis (ED), Lumbar Radiculopathy (ED) Additional Instructions: Follow-up with PCP. Report back to ER with any new or worsening symptoms. Take Motrin and Tylenol as needed for your symptoms. Is patient prescribed a controlled substance at d/c from ED?: No Referrals: None,Stated [Primary Care Provider] - 1-2 days Orlin Quintana MD [STAFF PHYSICIAN] - 1-2 days Time of Disposition: 18:27
[2023-12-06 18:30] VITALS: BP 140/81; PULSE 79; RESP 16
== END 2023-12-06 18:40 | disposition home or self-care (01) ==
LOC: EC 17:16
DX: R22.43 Localized swelling, mass and lump, lower limb, bilateral
CPT/HCPCS: 87636; 87651; 96372; 99284

== ENCOUNTER → 2023-12-16 | Outpatient (CLI) | payer OTHER ==
--- NOTE | 2023-12-25 14:53 | MM ---
Reason for Exam: Screening (asymptomatic). Baseline mammogram. Patient History: Menarche at age 13. First Full-Term at age 20. Premenopausal. Risk Values: Jewell 5 year model risk: 0.6%. NCI Lifetime model risk: 8.8%. Prior Study Comparison: Patient's first Mammogram. Tissue Density: The breasts are heterogeneously dense, which may obscure small masses. Findings: Analyzed By CAD. The pattern is symmetrical. Focal asymmetry upper outer left breast. No suspicious groups of microcalcifications, spiculated or lobular masses, architectural distortion or other secondary signs of malignancy are mammographically apparent. Overall Assessment: Benign, BI-RAD 2 Management: Screening Mammogram of both breasts in 1 year. A negative mammogram report should not preclude additional follow up of suspicious palpable abnormalities. Patient should continue monthly self breast exam. A clinical breast exam by your physician is recommended on an annual basis and results should be correlated with mammographic findings. Note on Jewell scores and lifetime risk: 1. A Jewell score greater than 3% is considered moderate risk. If this is the case, consider specialist referral to assess eligibility for a risk reducing agent. 2. If overall lifetime risk for the development of breast cancer is 20% or higher, the patient may qualify for future screening with alternating mammogram and breast MRI. [facility], , 12/25/2023 2:50 PM. Electronically signed and approved by: Isidro Lombardi D.O. Radiologis
== END | disposition home or self-care (01) ==
LOC: RADMAMWWP 07:10
PROVIDERS: ATTEND Family Medicine
DX: Z12.31 Encounter for screening mammogram for malignant neoplasm of breast
CPT/HCPCS: 77067

== ENCOUNTER → 2023-12-25 | Outpatient (CLI) | payer OTHER | END | disposition home or self-care (01) | LOC: RADMAMWWP 14:35 | PROVIDERS: ATTEND Family Medicine | DX: Z53.9 Procedure and treatment not carried out, unspecified reason (principal) ==